=== PATIENT | female | born 1950 | race Caucasian/White ===

== ENCOUNTER 2018-08-10 14:02 | Emergency (ER) | payer MEDICARE, OTHER, SELFPAY ==
[2018-08-10 14:00] VITALS: BP 137/80; PULSE 80; RESP 14; TEMP 36.2; O2SAT 93
--- NOTE | 2018-08-10 14:12 | DI.RAD.S_ITS ---
PROCEDURE: XR SHOULDER RT MIN 2V INDICATIONS: shoulder/humeral pain, fall outstretched arm TECHNIQUE: 2 views of the shoulder were acquired. COMPARISON: None. FINDINGS: Bones: No dislocations. No suspicious bony lesions. Visualized ribs appear intact. There is a three-part humeral head/neck fracture at the right shoulder with moderate degenerative osteoarthritis. Partially visualized at the cervical spine are posterior fixation devices and screws none which appear disrupted. Soft tissues: No suspicious soft tissue calcifications. IMPRESSION: Humeral head/neck acute fracture, three-part, with a.c. joint osteoarthritis. Dictated by: Suman Andersen M.D. on 08/10/2018 at 15:07 Approved by: Suman Andersen M.D. on 08/10/2018 at 15:09
--- NOTE | 2018-08-10 14:14 | ED_ITS ---
HPI - Extremity Injury (Upper) General Chief Complaint: Extremity Injury, Upper Stated Complaint: GLF, Right shoulder pain. Time Seen by Provider: 08/10/18 14:07 Source: patient Mode of arrival: ambulatory Limitations: no limitations History of Present Illness HPI narrative: This is a 68-year-old female comes in with complaint of right shoulder/upper extremity pain. Patient states that she tripped earlier today and fell on outstretched hand and had felt a pop and has pain in her right shoulder. Patient denies striking her head she denies any neck or current back pain. Patient is not having any new numbness or tingling. She states shows has some numbness and tingling in her thumb and 2nd finger secondary to a cervical surgery she had remotely. Patient is not having any new weakness. She tried to move her shoulder but was very painful and does not wish to at this time. She denies any other injuries. Patient is not having any headache, no nausea or vomiting, no chest pain or shortness of breath. No GI or urinary symptoms. Related Data Previous Rx's Medication Instructions Recorded diazepam 10 mg PO HSP PRN #20 tab 07/12/16 hydrocodone-acetaminophen 1 tab PO Q4HP PRN #50 tab 07/19/16 Disabled Parking Permit dev #1 07/28/16 diazepam [Valium] 5 mg PO TID PRN #7 tab 12/29/17 oxycodone-acetaminophen [Percocet] 1 tab PO Q4-6H PRN #14 tab 08/10/18 Allergies Allergy/AdvReac Type Severity Reaction Status Date / Time egg [EGG] Allergy Intermediate GI UPSET Verified 08/10/18 14:32 CORNSILK Allergy Intermediate GI UPSET Uncoded 01/23/18 12:30 Review of Systems Review of Systems All systems reviewed & are unremarkable except as noted in HPI and below ENT Ears, Nose, Mouth, and Throat: Denies neck pain Cardiovascular Denies chest pain and Denies dyspnea Respiratory Denies dyspnea Gastrointestinal Gastrointestinal: Denies abdominal pain, Denies nausea and Denies vomiting Genitourinary Denies urinary frequency and Denies dysuria Musculoskeletal Denies back pain, Reports limited range of motion, Denies muscle weakness, Denies neck pain, Reports numbness (Chronic 1st and 2nd finger right hand.) and Reports other (Right arm pain) Integumentary/Breasts Denies rash Neurologic Reports numbness (Chronic 1st and 2nd finger right hand.) PFSH Medical History Chronic back pain (Acute) Hypertension (Acute) Surgical History History of back surgery (Acute) Hx of cervical spine surgery (Acute) Family History Father Age: 85 Prostate cancer Hypertension High cholesterol Mother Mental health problem Social History marital status: details: Lives on [facility] Smoking Status: Never smoker Exam Narrative Exam Narrative: GENERAL: Alert and oriented x three, well-nourished, well- appearing female in some moderate distress. HEENT: Head normocephalic, atraumatic, EOMI, pupils reactive, face symmetric, moist mucous membranes NECK: Supple, full range of motion, no vertebral tenderness of cervical spine. CARDIOVASCULAR: Regular rate and rhythm without murmurs, rubs or gallops. RESPIRATORY: Breath sounds equal bilaterally, no wheezes rales or rhonchi. ABDOMEN: Soft, nontender. Normoactive bowel sounds all 4 quadrants. No guarding or rebound, rigidity, no mass : No CVA tenderness EXTREMITIES: Patient is not willing to lift or move her right shoulder, she has tenderness over the proximal end of the humerus. No tenderness over the AC joint, no to clavicular or scapular tenderness. She has no tenderness of the right elbow, forearm or hand. patient has 2+ pulses bilaterally in the upper extremities. She has equal heel cementer machine bilaterally. No swelling is appreciated right versus left., no clubbing or edema. Neurovascularly intact NEUROLOGICAL: Cranial nerves II through XII grossly intact. SKIN: Warm, dry, no petechiae, no rashes or lesions. Initial Vital Signs Initial Vital Signs: Vital Signs Temperature 97.1 F L 08/10/18 14:00 Pulse Rate 80 08/10/18 14:00 Respiratory Rate 14 08/10/18 14:00 Blood Pressure 137/80 08/10/18 14:00 Pulse Oximetry 93 08/10/18 14:00 Course Orders Ordered: ED Orders 08/10/18 14:12 XR shoulder RT min 2V Stat Discontinued Medications Hydromorphone HCl (Dilaudid) 1 mg IV NOW ONE Stop: 08/10/18 15:35 Last Admin: 08/10/18 15:38 Dose: 1 mg Morphine Sulfate (Morphine) 4 mg IV NOW ONE Stop: 08/10/18 14:18 Last Admin: 10/27/18 14:31 Dose: 4 mg Oxycodone/Acetaminophen (Endocet 5/325 Prepack) 1 bottle MISC SEEINSTR ONE Stop: 08/10/18 18:55 Last Admin: 08/10/18 19:04 Dose: 1 bottle Vital Signs - 8 hr 08/10/18 14:00 08/10/18 15:39 08/10/18 17:04 Temperature 97.1 F L Pulse Rate 80 80 77 Respiratory Rate 14 18 Blood Pressure 137/80 Blood Pressure [Left Arm] 128/78 118/72 Pulse Oximetry 93 99 95 MDM - Extremity Injury (Upper) MDM Narrative Medical decision making narrative: I spoke with Dr. Tovar plan for follow-up , images were reviewed. Shoulder immobilizer as well as pain control. Patient is aware of the plan to follow up with Orthopedic surgery. Given verbal and written instructions, Recheck after shoulder immobilizer and patient is NVI. Discharge Plan Departure Patient Disposition: Home Clinical Impression: Fracture of head of humerus Instructions: DI for Humeral Fracture Activity Restrictions/Additional Instructions: Follow-up with Orthopedic surgery in the next 3-5 days. Call the Orthopedic surgery office tomorrow morning. Contact information is below. Take pain medications as prescribed, these medications can make you sleepy do not drive, perform hazards activities or make any major decisions while taking them. Splint Care: Keep splint clean and dry. Elevated affected body part to decrease swelling. OK to use ice pack on the affected body part. Use for 15-20 minutes each time, for 5-6x per day. If you develop worsening pain, numbness, tingling, discoloration of the affected body part, loosen the shoulder immobilizer, and either see your doctor for an urgent re-assessment, or return to the Emergency Department. Return to the Emergency Department for any new or worsening symptoms. Prescriptions: New oxycodone-acetaminophen [Percocet] 5-325 mg tablet 1 tab PO Q4-6H PRN (Reason: pain) Qty: 14 RF: 0 No Action diazepam 10 MG tablet 10 mg PO HSP PRNQty: 20 RF: 0 hydrocodone-acetaminophen 5 MG/325 MG tablet 1 tab PO Q4HP PRNQty: 50 RF: 0 Disabled Parking Permit Qty: 1 RF: 0 diazepam [Valium] 5 MG tablet 5 mg PO TID PRNQty: 7 RF: 0 Referrals: Amy Tovar MD [Physician] - Amy Perea MD [Primary Care Provider] -
[2018-08-10] MEDS: MORPHINE 4 MG/ML INJ IV (14:31)
[2018-08-10] MEDS: HYDROMORPHONE 1 MG INJ IV (15:38)
[2018-08-10 15:39] VITALS: BP 128/78; PULSE 80; RESP 18; O2SAT 99
[2018-08-10 17:04] VITALS: BP 118/72; PULSE 77; RESP 18; O2SAT 95
[2018-08-10] MEDS: OXYCODONE/APAP 5/325 PREPACK 1 BOTTLE MISC (19:04)
[2018-08-10 19:40] VITALS: BP 120/83; PULSE 79; RESP 18; O2SAT 100
== END 2018-08-10 19:40 | disposition home or self-care (01) ==
PROVIDERS: Emergency Provider Emergency Medicine; PCP Family Medicine
DX: S42.291A Other displaced fracture of upper end of right humerus, initial encounter for closed fracture (principal); W01.0XXA Fall on same level from slipping, tripping and stumbling without subsequent striking against object, initial encounter
CPT/HCPCS: 73030; 96374; 96375; 99283; J1170; J2270

== ENCOUNTER 2018-09-21 14:53 | Emergency (ER) | payer MEDICARE, OTHER, SELFPAY ==
[2018-09-21 15:02] VITALS: BP 156/95; PULSE 107; RESP 20; TEMP 36.2; O2SAT 98; BMI 38.9
--- NOTE | 2018-09-21 15:07 | DI.RAD.S_ITS ---
PROCEDURE: XR HIP W PEL IF DONE RT 2V INDICATIONS: hip pain and pop while walking with recent injury TECHNIQUE: AP pelvis with lateral view(s) of the right hip(s). COMPARISON: None. FINDINGS: Bones: Right worse than left bilateral hip joint osteoarthritis is seen. No evidence of avascular necrosis. No fractures or dislocations. Pelvic ring appears intact. No suspicious bony lesions. Soft tissues: The visualized bowel gas pattern is normal. No suspicious soft tissue calcifications. IMPRESSION: Right worse than left bilateral hip joint osteoarthritis. No acute pelvic or hip fracture. No evidence of avascular necrosis. Dictated by: Ranjan Howell M.D. on 09/21/2018 at 15:54 Approved by: Ranjan Howell M.D. on 09/21/2018 at 15:54
--- NOTE | 2018-09-21 16:25 | ED.LOWEXIN ---
HPI - Extremity Injury (Lower) <ROHAN Neumann - Last Filed: 09/21/18 21:33> General Chief Complaint: Extremity Injury, Lower Stated Complaint: right side hip pain Time Seen by Provider: 09/21/18 15:39 Source: patient Mode of arrival: wheelchair Limitations: no limitations History of Present Illness HPI Narrative: 68-year-old female with history of osteo arthritis here for complaint of pain into her right hip. The she does state that she had a ground level fall several days ago. She states she had some pain into her right hip after the Fall. She reports that she was walking 2 days ago and felt increase in the pain in the right hip. She denies any other trauma other than to the right hip. She did not hit her head. Increased pain with ambulation. She has a history of chronic pain to the right hip secondary to osteoarthritis. MD complaint: hip injury Related Data Previous Rx's Medication Instructions Recorded diazepam 10 mg PO HSP PRN #20 tab 07/12/16 hydrocodone-acetaminophen 1 tab PO Q4HP PRN #50 tab 07/19/16 Disabled Parking Permit dev #1 07/28/16 diazepam [Valium] 5 mg PO TID PRN #7 tab 12/29/17 oxycodone-acetaminophen [Percocet] 1 tab PO Q4-6H PRN #14 tab 08/10/18 Allergies Allergy/AdvReac Type Severity Reaction Status Date / Time No Known Drug Allergies Allergy Verified 09/21/18 15:02 Review of Systems <ROHAN Neumann - Last Filed: 09/21/18 21:33> Constitutional Denies chills, Denies fever(s), Denies lethargy and Denies weakness Eyes Denies change in vision, Denies eye discharge, Denies irritation and Denies loss of vision ENT Ears, Nose, Mouth, and Throat: Denies change in voice, Denies neck pain and Denies sore throat Cardiovascular Denies chest pain, Denies irregular heart rhythm, Denies lightheadedness, Denies palpitations, Denies dyspnea, Denies dyspnea on exertion and Denies orthopnea Respiratory Denies cough, Denies dyspnea, Denies dyspnea on exertion and Denies wheezing Gastrointestinal Gastrointestinal: Denies abdominal pain, Denies change in bowel habits, Denies diarrhea, Denies nausea and Denies vomiting Genitourinary Denies hematuria, Denies flank pain, Denies urinary incontinence and Denies urinary urgency Musculoskeletal Denies neck pain Comments: Right hip pain Integumentary/Breasts Denies pruritus, Denies erythema, Denies rash and Denies wounds Neurologic Denies confusion, Denies loss of vision and Denies weakness Psychiatric Denies anxiety, Denies confusion, Denies depression, Denies homicidal ideation and Denies suicidal ideation Endocrine Denies palpitations Hematologic/Lymphatic Denies easy bruising Allergic/Immunologic Denies wheezing Exam <ROHAN Neumann - Last Filed: 09/21/18 21:33> Initial Vital Signs Initial Vital Signs: Vital Signs Temperature 97.1 F L 09/21/18 15:02 Pulse Rate 107 H 09/21/18 15:02 Respiratory Rate 20 09/21/18 15:02 Blood Pressure 156/95 H 09/21/18 15:02 Pulse Oximetry 98 09/21/18 15:02 Const General: cooperative and well developed Nutritional Appearance: well nourished Orientation: alert, awake, oriented x3 and not confused [facility] Mouth: oral mucosae normal and moist mucous membranes Eyes Conjunctivae: conjunctivae normal Sclera: sclerae normal Pupils: PERRL EOM: EOM intact bilaterally Resp Effort & Inspection: normal respiratory effort, able to speak in complete sentences, no respiratory distress and no use of accessory muscles Auscultation: clear to auscultation bilaterally, no rales, no rhonchi and no wheezes Cardio Rate: regular rate Rhythm: regular rhythm Heart Sounds: no click, no gallops, no murmurs and no rubs Pulses: normal peripheral pulses Skin General: no rashes or lesions noted, No jaundice and No petechiae Neuro General: alert, oriented x3, gait normal and no focal motor deficits Speech: speech normal Extrem Other: no signs of trauma to the right hip. No ecchymosis. No open lesions. No deformities. Distal sensation is intact. Distal pulses are intact. <Freddy Ayala DO - Last Filed: 09/23/18 07:10> Initial Vital Signs Initial Vital Signs: Vital Signs Temperature 97.1 F L 09/21/18 15:02 Pulse Rate 107 H 09/21/18 15:02 Respiratory Rate 20 09/21/18 15:02 Blood Pressure 156/95 H 09/21/18 15:02 Pulse Oximetry 98 09/21/18 15:02 Course <ROHAN Neumann - Last Filed: 09/21/18 21:33> Orders Ordered: ED Orders 09/21/18 15:07 XR hip w pel if done RT 2V Stat Vital Signs - 8 hr 09/21/18 15:02 09/21/18 16:53 Temperature 97.1 F L Pulse Rate 107 H 92 H Respiratory Rate 20 14 Blood Pressure 156/95 H Blood Pressure [Left Arm] 187/89 H Pulse Oximetry 98 96 <Freddy Ayala DO - Last Filed: 09/23/18 07:10> Orders Ordered: ED Orders 09/21/18 15:07 XR hip w pel if done RT 2V Stat Vital Signs - 8 hr 09/21/18 15:02 09/21/18 16:53 Temperature 97.1 F L Pulse Rate 107 H 92 H Respiratory Rate 20 14 Blood Pressure 156/95 H Blood Pressure [Left Arm] 187/89 H Pulse Oximetry 98 96 MDM - Extremity Injury (Lower) <ORHAN Neumann - Last Filed: 09/21/18 21:33> Imaging Data Right hip : Radiologist's impression: [address] [address] XRay Report Signed Patient: Carol Finley JMR#: [id number] : 1950Acct:[id number] Age/Sex: 68 / FDate of Service: 09/21/18 Loc: ED Accession Number: [id number] Procedure: XR hip w pel if done RT 2V Ordering Provider: Freddy Ayala D.O. PROCEDURE: XR HIP W PEL IF DONE RT 2V INDICATIONS: hip pain and pop while walking with recent injury TECHNIQUE: AP pelvis with lateral view(s) of the right hip(s). COMPARISON: None. FINDINGS: Bones: Right worse than left bilateral hip joint osteoarthritis is seen. No evidence of avascular necrosis. No fractures or dislocations. Pelvic ring appears intact. No suspicious bony lesions. Soft tissues: The visualized bowel gas pattern is normal. No suspicious soft tissue calcifications. IMPRESSION: Right worse than left bilateral hip joint osteoarthritis. No acute pelvic or hip fracture. No evidence of avascular necrosis. Dictated by: Ranjan Howell M.D. on 09/21/2018 at 15:54 Approved by: Ranjan Howell M.D. on 09/21/2018 at 15:54 [facility] Narrative Medical decision making narrative: x-ray the right hip and pelvis was obtained and was negative for any fractures. x-ray does show that she has osteoarthritis no signs of avascular necrosis patient does have a chronic history of arthritis. she is currently trying to get Orthopedics to discuss right hip replacement. will have her continue using [id number] ibuprofen or Tylenol as needed for any discomfort. Gentle range of motion to the right hip. No strenuous activity. Follow up with primary care provider. Return emergency room for any worsening symptoms. Discharge Plan Departure Patient Disposition: Home Clinical Impression: Acute pain of right hip Discharge Date/Time: 09/21/18 17:23 Interventions: ED Discharge Assessment Last Done: 09/21/18 17:23 Instructions: DI for Hip Pain Activity Restrictions/Additional Instructions: x-ray the right hip and pelvis was obtained and was negative for any fractures. x-ray does show osteoarthritis to the right hip. Use [id number] ibuprofen or Tylenol as needed for any discomfort. Gentle range of motion to the right hip. No strenuous activity. Follow up with primary care provider. follow up with Orthopedics. Return emergency room for any worsening symptoms. Prescriptions: No Action diazepam 10 MG tablet 10 mg PO HSP PRNQty: 20 RF: 0 hydrocodone-acetaminophen 5 MG/325 MG tablet 1 tab PO Q4HP PRNQty: 50 RF: 0 Disabled Parking Permit Qty: 1 RF: 0 diazepam [Valium] 5 MG tablet 5 mg PO TID PRNQty: 7 RF: 0 oxycodone-acetaminophen [Percocet] 5-325 mg tablet 1 tab PO Q4-6H PRN (Reason: pain) Qty: 14 RF: 0 Referrals: Amy Perea MD [Primary Care Provider] - <Freddy Ayala DO - Last Filed: 09/23/18 07:10> Cosign ED Attending Davidature Attestation: I was immediately available in the department for consultation. Documentation has been reviewed. I agree with assessment and plan.
[2018-09-21 16:53] VITALS: BP 187/89; PULSE 92; RESP 14; O2SAT 96
--- NOTE | 2018-09-21 17:19 | ED_ITS ---
HPI - Extremity Injury (Lower) <ROHAN Neumann - Last Filed: 09/21/18 21:33> General Chief Complaint: Extremity Injury, Lower Stated Complaint: right side hip pain Time Seen by Provider: 09/21/18 15:39 Source: patient Mode of arrival: wheelchair Limitations: no limitations History of Present Illness HPI Narrative: 68-year-old female with history of osteo arthritis here for complaint of pain into her right hip. The she does state that she had a ground level fall several days ago. She states she had some pain into her right hip after the Fall. She reports that she was walking 2 days ago and felt increase in the pain in the right hip. She denies any other trauma other than to the right hip. She did not hit her head. Increased pain with ambulation. She has a history of chronic pain to the right hip secondary to osteoarthritis. MD complaint: hip injury Related Data Previous Rx's Medication Instructions Recorded diazepam 10 mg PO HSP PRN #20 tab 07/12/16 hydrocodone-acetaminophen 1 tab PO Q4HP PRN #50 tab 07/19/16 Disabled Parking Permit dev #1 07/28/16 diazepam [Valium] 5 mg PO TID PRN #7 tab 12/29/17 oxycodone-acetaminophen [Percocet] 1 tab PO Q4-6H PRN #14 tab 08/10/18 Allergies Allergy/AdvReac Type Severity Reaction Status Date / Time No Known Drug Allergies Allergy Verified 09/21/18 15:02 Review of Systems <ROHAN Neumann - Last Filed: 09/21/18 21:33> Constitutional Denies chills, Denies fever(s), Denies lethargy and Denies weakness Eyes Denies change in vision, Denies eye discharge, Denies irritation and Denies loss of vision ENT Ears, Nose, Mouth, and Throat: Denies change in voice, Denies neck pain and Denies sore throat Cardiovascular Denies chest pain, Denies irregular heart rhythm, Denies lightheadedness, Denies palpitations, Denies dyspnea, Denies dyspnea on exertion and Denies orthopnea Respiratory Denies cough, Denies dyspnea, Denies dyspnea on exertion and Denies wheezing Gastrointestinal Gastrointestinal: Denies abdominal pain, Denies change in bowel habits, Denies diarrhea, Denies nausea and Denies vomiting Genitourinary Denies hematuria, Denies flank pain, Denies urinary incontinence and Denies urinary urgency Musculoskeletal Denies neck pain Comments: Right hip pain Integumentary/Breasts Denies pruritus, Denies erythema, Denies rash and Denies wounds Neurologic Denies confusion, Denies loss of vision and Denies weakness Psychiatric Denies anxiety, Denies confusion, Denies depression, Denies homicidal ideation and Denies suicidal ideation Endocrine Denies palpitations Hematologic/Lymphatic Denies easy bruising Allergic/Immunologic Denies wheezing Exam <ROHAN Neumann - Last Filed: 09/21/18 21:33> Initial Vital Signs Initial Vital Signs: Vital Signs Temperature 97.1 F L 09/21/18 15:02 Pulse Rate 107 H 09/21/18 15:02 Respiratory Rate 20 09/21/18 15:02 Blood Pressure 156/95 H 09/21/18 15:02 Pulse Oximetry 98 09/21/18 15:02 Const General: cooperative and well developed Nutritional Appearance: well nourished Orientation: alert, awake, oriented x3 and not confused [facility] Mouth: oral mucosae normal and moist mucous membranes Eyes Conjunctivae: conjunctivae normal Sclera: sclerae normal Pupils: PERRL EOM: EOM intact bilaterally Resp Effort & Inspection: normal respiratory effort, able to speak in complete sentences, no respiratory distress and no use of accessory muscles Auscultation: clear to auscultation bilaterally, no rales, no rhonchi and no wheezes Cardio Rate: regular rate Rhythm: regular rhythm Heart Sounds: no click, no gallops, no murmurs and no rubs Pulses: normal peripheral pulses Skin General: no rashes or lesions noted, No jaundice and No petechiae Neuro General: alert, oriented x3, gait normal and no focal motor deficits Speech: speech normal Extrem Other: no signs of trauma to the right hip. No ecchymosis. No open lesions. No deformities. Distal sensation is intact. Distal pulses are intact. <Freddy Ayala DO - Last Filed: 09/23/18 07:10> Initial Vital Signs Initial Vital Signs: Vital Signs Temperature 97.1 F L 09/21/18 15:02 Pulse Rate 107 H 09/21/18 15:02 Respiratory Rate 20 09/21/18 15:02 Blood Pressure 156/95 H 09/21/18 15:02 Pulse Oximetry 98 09/21/18 15:02 Course <ROHAN Neumann - Last Filed: 09/21/18 21:33> Orders Ordered: ED Orders 09/21/18 15:07 XR hip w pel if done RT 2V Stat Vital Signs - 8 hr 09/21/18 15:02 09/21/18 16:53 Temperature 97.1 F L Pulse Rate 107 H 92 H Respiratory Rate 20 14 Blood Pressure 156/95 H Blood Pressure [Left Arm] 187/89 H Pulse Oximetry 98 96 <Freddy Ayala DO - Last Filed: 09/23/18 07:10> Orders Ordered: ED Orders 09/21/18 15:07 XR hip w pel if done RT 2V Stat Vital Signs - 8 hr 09/21/18 15:02 09/21/18 16:53 Temperature 97.1 F L Pulse Rate 107 H 92 H Respiratory Rate 20 14 Blood Pressure 156/95 H Blood Pressure [Left Arm] 187/89 H Pulse Oximetry 98 96 MDM - Extremity Injury (Lower) <ROHAN Neumann - Last Filed: 09/21/18 21:33> Imaging Data Right hip : Radiologist's impression: [address] [address] XRay Report Signed Patient: Carol Finley JMR#: [id number] : 1950Acct:[id number] Age/Sex: 68 / FDate of Service: 09/21/18 Loc: ED Accession Number: [id number] Procedure: XR hip w pel if done RT 2V Ordering Provider: Freddy Ayala D.O. PROCEDURE: XR HIP W PEL IF DONE RT 2V INDICATIONS: hip pain and pop while walking with recent injury TECHNIQUE: AP pelvis with lateral view(s) of the right hip(s). COMPARISON: None. FINDINGS: Bones: Right worse than left bilateral hip joint osteoarthritis is seen. No evidence of avascular necrosis. No fractures or dislocations. Pelvic ring appears intact. No suspicious bony lesions. Soft tissues: The visualized bowel gas pattern is normal. No suspicious soft tissue calcifications. IMPRESSION: Right worse than left bilateral hip joint osteoarthritis. No acute pelvic or hip fracture. No evidence of avascular necrosis. Dictated by: Ranjan Howell M.D. on 09/21/2018 at 15:54 Approved by: Ranjan Howell M.D. on 09/21/2018 at 15:54 [facility] Narrative Medical decision making narrative: x-ray the right hip and pelvis was obtained and was negative for any fractures. x-ray does show that she has osteoarthritis no signs of avascular necrosis patient does have a chronic history of arthritis. she is currently trying to get Orthopedics to discuss right hip replacement. will have her continue using [id number] ibuprofen or Tylenol as needed for any discomfort. Gentle range of motion to the right hip. No strenuous activity. Follow up with primary care provider. Return emergency room for any worsening symptoms. Discharge Plan Departure Patient Disposition: Home Clinical Impression: Acute pain of right hip Discharge Date/Time: 09/21/18 17:23 Interventions: ED Discharge Assessment Last Done: 09/21/18 17:23 Instructions: DI for Hip Pain Activity Restrictions/Additional Instructions: x-ray the right hip and pelvis was obtained and was negative for any fractures. x-ray does show osteoarthritis to the right hip. Use over-the- counter ibuprofen or Tylenol as needed for any discomfort. Gentle range of motion to the right hip. No strenuous activity. Follow up with primary care provider. follow up with Orthopedics. Return emergency room for any worsening symptoms. Prescriptions: No Action diazepam 10 MG tablet 10 mg PO HSP PRNQty: 20 RF: 0 hydrocodone-acetaminophen 5 MG/325 MG tablet 1 tab PO Q4HP PRNQty: 50 RF: 0 Disabled Parking Permit Qty: 1 RF: 0 diazepam [Valium] 5 MG tablet 5 mg PO TID PRNQty: 7 RF: 0 oxycodone-acetaminophen [Percocet] 5-325 mg tablet 1 tab PO Q4-6H PRN (Reason: pain) Qty: 14 RF: 0 Referrals: Amy Perea MD [Primary Care Provider] - <Freddy Ayala DO - Last Filed: 09/23/18 07:10> Cosign ED Attending Davidature Attestation: I was immediately available in the department for consultation. Documentation has been reviewed. I agree with assessment and plan.
== END 2018-09-21 17:23 | disposition home or self-care (01) ==
PROVIDERS: Emergency Provider Nurse Practitioner Family; PCP Family Medicine
DX: M25.551 Pain in right hip (principal); W18.30XA Fall on same level, unspecified, initial encounter
CPT/HCPCS: 73502; 99282; 99283

== ENCOUNTER 2019-01-05 21:12 | Emergency (ER) | payer MEDICARE, OTHER, SELFPAY ==
[2019-01-05 21:28] VITALS: BP 144/69; PULSE 69; RESP 22; TEMP 36.9; O2SAT 100
--- NOTE | 2019-01-05 21:35 | ED_ITS ---
HPI - Dizziness General Chief Complaint: Dizziness Stated Complaint: dizziness Time Seen by Provider: 01/05/19 21:29 Source: patient Mode of arrival: ambulatory Limitations: no limitations History of Present Illness HPI Narrative: Patient is a 68-year-old female here for evaluation of dizziness. She states that for the past several months on occasion especially when she turns her head to the right she has episodes of a room spinning sensation. She denies any other associated symptoms to include chest pain or palpitations. He has never passed out because of the symptoms. She states that in the past she has been able to make the symptoms go away by relaxing and not moving her head. She states that over the past day it was the same symptoms especially when she turns her head to the right however they have lasted longer and if not always gone away when she has been still. Related Data Previous Rx's Medication Instructions Recorded diazepam 10 mg PO HSP PRN #20 tab 07/12/16 hydrocodone-acetaminophen 1 tab PO Q4HP PRN #50 tab 07/19/16 Disabled Parking Permit dev #1 07/28/16 diazepam [Valium] 5 mg PO TID PRN #7 tab 12/29/17 oxycodone-acetaminophen [Percocet] 1 tab PO Q4-6H PRN #14 tab 08/10/18 loratadine [Claritin] 10 mg PO DAILY PRN #30 tab 01/05/19 meclizine 25 mg PO BID-TID PRN #20 tab 01/05/19 Allergies Allergy/AdvReac Type Severity Reaction Status Date / Time No Known Drug Allergies Allergy Verified 09/21/18 15:02 Review of Systems Constitutional Denies fever(s), Denies headache(s) and Denies lethargy Eyes Denies change in vision and Denies diplopia ENT Ears, Nose, Mouth, and Throat: Reports vertigo, Denies facial pain, Denies headache(s), Reports sinus pressure and Denies sore throat Cardiovascular Denies chest pain and Denies dyspnea Respiratory Denies dyspnea Gastrointestinal Gastrointestinal: Denies abdominal pain, Denies nausea and Denies vomiting Musculoskeletal Denies myalgias and Denies arthralgias Integumentary/Breasts Denies rash Neurologic Reports vertigo and Denies headache(s) Hematologic/Lymphatic Denies easy bleeding and Denies easy bruising Allergic/Immunologic Denies urticaria [facility] Medical History Chronic back pain (Acute) Hypertension (Acute) Family History Father Age: 85 Prostate cancer Hypertension High cholesterol Mother Mental health problem Social History marital status: details: Lives on [facility] Smoking Status: Never smoker Exam Initial Vital Signs Initial Vital Signs: Vital Signs Temperature 98.5 F 01/05/19 21:28 Pulse Rate 69 01/05/19 21:28 Respiratory Rate 22 01/05/19 21:28 Blood Pressure 144/69 H 01/05/19 21:28 Pulse Oximetry 100 01/05/19 21:28 Const General: cooperative, healthy appearing, comfortable, well developed, well groomed and No acute distress Orientation: alert, awake and oriented x3 HENMT Head: normal to inspection and normocephalic Eyes Pupils: PERRL EOM: EOM intact bilaterally Resp Effort & Inspection: normal respiratory effort Auscultation: clear to auscultation bilaterally Cardio Rate: regular rate Rhythm: regular rhythm Skin Lesions: no lesions Rashes: no rashes Neuro General: alert, awake and oriented x3 Cranial Nerves: CN's II-XI intact bilaterally Cognition: normal cognition Speech: speech normal Gait: normal gait Motor: muscle tone normal throughout Sensory Exam: no sensory deficits noted Other: Patient able to reproduce her vertigo by laying flat and looking to the right with nystagmus. Essentially performing her own Meera-Hallpike maneuver positive to the right. Extrem General: normal to inspection and capillary refill normal Psych Appearance: grossly normal and well kempt Course Orders Ordered: ED Orders 01/05/19 21:29 EKG-12 Lead Stat Discontinued Medications Meclizine HCl (Antivert) 25 mg PO NOW ONE Stop: 01/05/19 22:31 Last Admin: 01/05/19 22:31 Dose: 25 mg Vital Signs - 8 hr 01/05/19 21:28 Temperature 98.5 F Pulse Rate 69 Respiratory Rate 22 Blood Pressure 144/69 H Pulse Oximetry 100 [facility] - Dizziness ECG Data Attestation: I personally reviewed and interpreted this ECG as follows: Prior ECG tracings: not available for review Interpretation: Sinus rhythm Ventricular rate 85 Normal axis Normal QRS Normal QTC No ST T wave changes [facility] Narrative Medical decision making narrative: Patient performed her own Meera-Hallpike maneuver by causing the symptoms to reoccur with visible nystagmus when she turned her head to the right. Her symptoms improved when she laid flat look forward. She has no other associated symptoms. EKG is unremarkable. I suspect BPPV. Patient has not taken anything for this. She was given a handout for the Brien maneuver. She was also given a prescription for meclizine. We also discussed the use of decongestants. Low suspicion for CVA. Will hold on CT scan or MRI for now. When the patient contact her primary care doctor for follow-up. She was given return precautions. She expressed understanding and agreement with plan. Discharge Plan Departure Patient Disposition: Home Clinical Impression: Vertigo Discharge Date/Time: 01/05/19 22:31 Interventions: ED Discharge Assessment Last Done: 01/05/19 22:31 Instructions: DI for Vertigo Activity Restrictions/Additional Instructions: I recommend you contact your primary doctor for a follow-up. Take the medications like we discussed. Return to the emergency department for any new or worsening symptoms Prescriptions: New meclizine 25 mg tablet 25 mg PO BID-TID PRN (Reason: motion sickness) Qty: 20 RF: 0 loratadine [Claritin] 10 mg tablet 10 mg PO DAILY PRN (Reason: allergy symptoms) Qty: 30 RF: 0 No Action diazepam 10 MG tablet 10 mg PO HSP PRNQty: 20 RF: 0 hydrocodone-acetaminophen 5 MG/325 MG tablet 1 tab PO Q4HP PRNQty: 50 RF: 0 Disabled Parking Permit Qty: 1 RF: 0 diazepam [Valium] 5 MG tablet 5 mg PO TID PRNQty: 7 RF: 0 oxycodone-acetaminophen [Percocet] 5-325 mg tablet 1 tab PO Q4-6H PRN (Reason: pain) Qty: 14 RF: 0 Referrals: Amy Perea MD [Primary Care Provider] -
[2019-01-05] MEDS: MECLIZINE HCL 12.5 MG TABLET 25 MG PO (22:31)
== END 2019-01-05 22:31 | disposition home or self-care (01) ==
PROVIDERS: Emergency Provider Emergency Medicine; PCP Family Medicine
DX: R42 Dizziness and giddiness (principal)
CPT/HCPCS: 93005; 99282; 99283

== ENCOUNTER → 2021-03-08 09:56 | Outpatient (CLI) | payer MEDICARE, OTHER, SELFPAY ==
[2021-03-08 19:41] LABS: Hematocrit 42.5 % (36-46); Hemoglobin 14.2 g/dL (12.0-16.0); Mean Corpuscular HGB Conc 33.3 % (30-36); Mean Corpuscular Hemoglobin 32.4 PG (26-34); Platelet Count 171 X10^3/uL (150-400); Red Blood Cell Count 4.38 X10^6/uL (4.0-5.2); Red Cell Distribution Width 12.8 % (11.6-14.8); White Blood Cell Count 3.9 X10^3/uL (4.5-11.0)
[2021-03-08 19:55] LABS: Alanine Aminotransferase 35 IU/L (<35); Albumin 3.8 g/dL (3.5-5.0); Albumin Globulin Ratio 1.4 (1.0-2.8); Alkaline Phosphatase 97 U/L (38-126); Aspartate Aminotransferase 33 IU/L (14-36); BUN Creatinine Ratio 17.1 (6-22); Bilirubin Total 0.4 mg/dL (0.2-1.3); Blood Urea Nitrogen 13 mg/dL (7-17); Calcium 9.5 mg/dL (8.4-10.2); Carbon Dioxide 28 mmol/L (22-32); Chloride 107 mmol/L (98-107); Estimated Glomerular Filt Rate > 60.0 mL/min (>60); Globulin 2.8 g/dL (1.7-4.1); Glucose 104 mg/dL (80-110); HEMOLYSIS < 15 (0-50); Potassium 4.3 mmol/L (3.4-5.1); Sodium 140 mmol/L (137-145); Total Protein 6.6 g/dL (6.3-8.2)
[2021-03-08 20:24] LABS: Thyroid Stimulating Hormone 0.778 uIU/mL (0.47-4.68)
== END ==
PROVIDERS: PCP Family Medicine; Visit Provider Family Medicine
DX: R87.610 Atypical squamous cells of undetermined significance on cytologic smear of cervix (ASC-US) (principal); E78.5 Hyperlipidemia, unspecified; M43.22 Fusion of spine, cervical region
CPT/HCPCS: 80053; 84443; 85027

== ENCOUNTER 2021-09-20 21:01 | Emergency (ER) | payer MEDICARE, OTHER, SELFPAY ==
[2021-09-20 21:15] VITALS: BP 222/99; PULSE 70; RESP 18; TEMP 36.6; O2SAT 98
--- NOTE | 2021-09-20 21:19 | DI.RAD.S_ITS ---
PROCEDURE: XR CHEST 1V INDICATIONS: chest pain TECHNIQUE: One view of the chest was acquired. COMPARISON: [facility], CR, XR CHEST 1 VIEW, 08/07/2017, 12:39. FINDINGS: Surgical changes and devices: Fusion hardware in visualized portion of lower cervical spine is seen. Lungs and pleura: Chronic increased interstitial lung markings are noted. No definite focal infiltrate. No pleural effusions or pneumothorax. Mediastinum: Mediastinal contours appear normal. Heart size is normal. Bones and chest wall: No suspicious bony lesions. Overlying soft tissues appear unremarkable. IMPRESSION: Suggestion of chronic interstitial lung parenchymal disease. No definite focal infiltrate. No pleural effusion or pneumothorax. Dictated by: Ranjan Howell M.D. on 09/20/2021 at 21:35 Approved by: Ranjan Howell M.D. on 09/20/2021 at 21:39
[2021-09-20 21:54] LABS: Alanine Aminotransferase 26 IU/L (<35); Albumin 4.1 g/dL (3.5-5.0); Albumin Globulin Ratio 1.3 (1.0-2.8); Alkaline Phosphatase 55 U/L (38-126); Aspartate Aminotransferase 34 IU/L (14-36); BUN Creatinine Ratio 37.9 (6-22); Bilirubin Total 0.5 mg/dL (0.2-1.3); Blood Urea Nitrogen 25 mg/dL (7-17); Calcium 9.4 mg/dL (8.4-10.2); Carbon Dioxide 26 mmol/L (22-32); Chloride 110 mmol/L (98-107); Creatine Kinase 70 U/L (30-135); Estimated Glomerular Filt Rate > 60.0 mL/min (>60); Globulin 3.2 g/dL (1.7-4.1); Glucose 100 mg/dL (80-110); Lipase 113 U/L (23-300); Sodium 141 mmol/L (137-145); Total Protein 7.3 g/dL (6.3-8.2)
[2021-09-20 21:58] LABS: Add Manual Diff / Slide Review NO; Basophils Absolute Auto 100 /uL (0-100); Basophils Percent Auto 1.4 % (0-2); Eosinophils Absolute Auto 300 /uL (0-450); Eosinophils Percent Auto 5.5 % (2-4); Hematocrit 39.1 % (36-46); Hemoglobin 13.5 g/dL (12.0-16.0); Lymphocytes Absolute Auto 1400 /uL (1100-4500); Lymphocytes Percent Auto 26.1 % (25-40); Mean Corpuscular HGB Conc 34.5 % (30-36); Mean Corpuscular Volume 95.7 fL (80-100); Monocytes Absolute Auto 500 /uL (0-900); Monocytes Percent Auto 9.9 % (3-14); Neutrophils Absolute Auto 3000 /uL (1500-7000); Neutrophils Percent Auto 57.1 % (50-75); Platelet Count 143 X10^3/uL (150-400); Red Blood Cell Count 4.09 X10^6/uL (4.0-5.2); Red Cell Distribution Width 12.3 % (11.6-14.8); White Blood Cell Count 5.3 X10^3/uL (4.5-11.0)
[2021-09-20 21:59] LABS: HEMOLYSIS 109 (0-50)
[2021-09-20 22:06] LABS: Troponin I < 0.012 ng/mL (0.01-0.034)
[2021-09-20 23:57] VITALS: BP 182/98; PULSE 72; RESP 18
--- NOTE | 2021-09-20 23:57 | ED.GENADULT ---
HPI - General Adult General Chief complaint: Hypertension Stated complaint: high blood pressure, nose bleed Time Seen by Provider: 09/20/21 23:44 Source: patient Mode of arrival: Ambulatory History of Present Illness HPI narrative: Patient is a 71-year-old female. Has a history of hypertension. Last evening had a nose bleed. Today had elevated blood pressures. Contact her primary doctor. Was instructed to take an extra dose of her blood pressure medicines but her blood pressures continue to be elevated. She is also having a headache. Has had headache for the past 6 weeks. This seemed to start after having cataract surgery. She has followed up with her eye surgeon who stated that it was not related to her eyes or the cataract surgery. She has not had any evaluation of this. Has had surgery in her neck in the past that was many years ago for spinal fusion. States she has never had any imaging of her head. She denies any chest pain. No shortness of breath. No abdominal pain. No blood in her stool. No change in vision. Related Data Previous Rx's Medication Instructions Recorded Disabled Parking Permit dev #1 07/28/16 valsartan 160 mg tablet 160 mg PO .COMPLEX #90 tab MDD 09/20/21 320mg valsartan 80 mg tablet See Rx Instructions PO .COMPLEX 09/20/21 #180 tab MDD 320mg Allergies Allergy/AdvReac Type Severity Reaction Status Date / Time codeine Allergy Unknown Irritable Verified 05/05/21 09:14 naproxen Allergy Unknown NAUSEA/VOMI Verified 05/05/21 09:14 TING NSAIDS (Non-Steroidal Allergy Unknown BLEED Verified 05/05/21 09:14 Anti-Inflamma Review of Systems Constitutional Constitutional: Reports system reviewed and no additional complaints, except as documented Eyes Eyes: Reports system reviewed and no additional complaints, except as documented ENT Ears, Nose, Mouth, and Throat: Reports system reviewed and no additional complaints, except as documented Cardiovascular Cardiovascular: Reports system reviewed and no additional complaints, except as documented Respiratory Respiratory: Reports system reviewed and no additional complaints, except as documented Gastrointestinal Gastrointestinal: Reports system reviewed and no additional complaints, except as documented Genitourinary Genitourinary: Reports system reviewed and no additional complaints, except as documented Musculoskeletal Musculoskeletal: Reports system reviewed and no additional complaints, except as documented Integumentary/Breasts Skin/Breast: Reports system reviewed and no additional complaints, except as documented Neurologic Neurologic: Reports system reviewed and no additional complaints, except as documented Hematologic/Lymphatic On Anticoagulants: No Patient History Medical History Chronic back pain Hypertension Surgical History (Updated 02/24/21 @ 13:18 by Kathi Lopez CMA) History of back surgery History of right hip replacement History of tonsillectomy and adenoidectomy Hx of cervical spine surgery Family History (Updated 05/25/15 @ 00:00 by Conversion Provider) Father Age: 88 Prostate cancer Hypertension High cholesterol Mother Mental health problem Social History marital status: details: Lives on [facility] Smoking Status: Never smoker Smoking Status: Never smoker alcohol intake frequency: 0-2 drinks per day Substance Use Type: does not use Exam Initial Vital Signs Initial Vital Signs: Vital Signs Temperature 97.9 F 09/20/21 21:15 Pulse Rate 70 09/20/21 21:15 Respiratory Rate 18 09/20/21 21:15 Blood Pressure 222/99 H 09/20/21 21:15 Pulse Oximetry 98 09/20/21 21:15 Const General: cooperative, healthy appearing, comfortable and well developed HENOH Head: normal to inspection and normocephalic Eyes General: appearance normal, both eyes and all related structures Resp Effort & Inspection: normal respiratory effort Cardio Rate: regular rate GI Inspection: normal to inspection Skin General: no rashes or lesions noted Neuro General: patient alert, patient awake, patient oriented x3 and moves all extremities Cognition: normal cognition Speech: speech normal Gait: normal gait Sensory Exam: no sensory deficits noted Extrem General: normal to inspection and capillary refill normal Psych Appearance: grossly normal and well kempt Course Orders Ordered: ED Orders 09/20/21 21:19 XR chest 1V Stat EKG-12 Lead Stat 09/20/21 21:33 Complete Blood Count AUTO DIFF Stat Comprehensive Metabolic Panel Stat Lipase Stat Troponin & CK Cardiac Panel Stat 09/20/21 23:58 CT head/brain wo con Stat Vital Signs Vital signs: Vital Signs - 8 hr 09/20/21 21:15 09/20/21 23:57 09/21/21 01:11 Temperature 97.9 F Pulse Rate 70 72 Respiratory Rate 18 18 16 Blood Pressure 222/99 H 182/98 H 187/95 H Pulse Oximetry 98 98 Medical Decision Making Lab Data Lab results reviewed: Yes I reviewed the patient's lab results. Result diagrams: 09/20/21 21:33 09/20/21 21:33 Labs: Lab Results 09/20/21 09/20/21 Range/Units 21:33 21:33 WBC 5.3 (4.5-11.0) X10^3/uL RBC 4.09 (4.0-5.2) X10^6/uL Hgb 13.5 (12.0-16.0) g/dL Hct 39.1 (36-46) % MCV 95.7 (80-100) fL MCH 33.0 (26-34) PG MCHC 34.5 (30-36) % RDW 12.3 (11.6-14.8) % Plt Count 143 L (150-400) X10^3/uL Neut % (Auto) 57.1 (50-75) % Lymph % (Auto) 26.1 (25-40) % [place] % (Auto) 9.9 (3-14) % Eos % (Auto) 5.5 H (2-4) % Baso % (Auto) 1.4 (0-2) % Neut # (Auto) 3000 (2860-9042) /uL Lymph # (Auto) 1400 (4643-7952) /uL [place] # (Auto) 500 (0-900) /uL Eos # (Auto) 300 (0-450) /uL Baso # (Auto) 100 (0-100) /uL Sodium 141 (137-145) mmol/L Potassium 5.0 (3.4-5.1) mmol/L Chloride 110 H (98-107) mmol/L Carbon Dioxide 26 (22-32) mmol/L BUN 25 H (7-17) mg/dL Creatinine 0.66 (0.52-1.04) mg/dL Estimated GFR > 60.0 (>60) mL/min BUN/Creatinine Ratio 37.9 H (6-22) Glucose 100 (80-110) mg/dL Calcium 9.4 (8.4-10.2) mg/dL Total Bilirubin 0.5 (0.2-1.3) mg/dL AST 34 (14-36) IU/L ALT 26 (<35) IU/L Alkaline Phosphatase 55 (38-126) U/L Total Creatine Kinase 70 (30-135) U/L CK-MB (CK-2) TNP CK-MB (CK-2) Rel Index TNP Troponin I < 0.012 (0.01-0.034) ng/mL Total Protein 7.3 (6.3-8.2) g/dL Albumin 4.1 (3.5-5.0) g/dL Globulin 3.2 (1.7-4.1) g/dL Albumin/Globulin Ratio 1.3 (1.0-2.8) Lipase 113 (23-300) U/L Imaging Data Chest x-ray: Radiologist's Impression: [address] [address] XRay Report Signed Patient: Carol Finley MR#: [id number] : 1950 Acct:[id number] Age/Sex: 71 / F Date of Service: 09/20/21 Loc: ED Accession Number: [id number] ?? Procedure: XR chest 1V Ordering Provider: Abdirashid Browning D.O. PROCEDURE:? XR CHEST 1V ? INDICATIONS:? chest pain ? TECHNIQUE:? One view of the chest was acquired.? ? COMPARISON:? [facility], , XR CHEST 1 VIEW, 08/07/2017, 12:39. ? FINDINGS:? ? Surgical changes and devices:? Fusion hardware in visualized portion of lower cervical spine is seen. ? Lungs and pleura:? Chronic increased interstitial lung markings are noted.? No definite focal infiltrate.? No pleural effusions or pneumothorax.? ? Mediastinum:? Mediastinal contours appear normal.? Heart size is normal.? ? Bones and chest wall:? No suspicious bony lesions.? Overlying soft tissues appear unremarkable.? ? IMPRESSION:? Suggestion of chronic interstitial lung parenchymal disease.? No definite focal infiltrate.? No pleural effusion or pneumothorax. ? ? Dictated by: Ranjan Howell M.D. on 09/20/2021 at 21:35 ? ? Approved by: Ranjan Howell M.D. on 09/20/2021 at 21:39 CT scan - head: Radiologist's Impression: [address] [address] [address] Scan Report Signed Patient: aCrol Finley MR#: [id number] : 1950 Acct:[id number] Age/Sex: 71 / F Date of Service: 09/20/21 Loc: ED Accession Number: [id number] ?? Procedure: CT head/brain wo con Ordering Provider: Abdirashid Browning D.O. PROCEDURE:? CT HEAD/BRAIN WO CON ? INDICATIONS:? HTN and headache ? TECHNIQUE:? Noncontrast 4.5 mm thick angled axial sections acquired from the foramen magnum to the vertex, with coronal and sagittal reformats.? For radiation dose reduction, the following was used:? automated exposure control, adjustment of mA and/or kV according to patient size.? ? COMPARISON:? None. ? FINDINGS:? Image quality:? Excellent.? ? CSF spaces:? Basal cisterns are patent.? No extra-axial fluid collections.? The ventricles are symmetric in size and shape.? ? Brain:? There is a partially calcified isodense extra-axial mass within the posterior left parietal occipital lobe measuring 2.3 x 2.6 by 2.7 cm.? There is no midline shift.? No appreciable vasogenic edema.? There is cerebral volume loss for age, with resultant ventricular and sulcal prominence.? There are periventricular and deep white matter chronic small vessel ischemic changes.? There is intracranial internal carotid artery atherosclerosis.? ? Skull and face:? Calvarium and visualized facial bones appear intact, without suspicious lesions.? ? Sinuses:? Visualized sinuses and mastoids are clear.? ? IMPRESSION:? ? 1. Isodense mass with calcification in the left posterior parietal lobe suspicious for meningioma.? No priors are available for comparison.? Further evaluation with MRI brain with without contrast is recommended. ? ? Dictated by: Stephanie Christina M.D. on 09/21/2021 at 0:37 ? ? Approved by: Stephanie Christina M.D. on 09/21/2021 at 0:39?? ECG Data Attestation: I personally reviewed and interpreted this ECG as follows: Interpretation: Sinus rhythm Ventricular rate he Left axis deviation Normal QRS Normal QTC No ST T wave changes MDM Narrative Medical decision making narrative: Blood pressure did improve somewhat from triage without any intervention here in the ER. No fevers. No nose bleed today as this was yesterday. No chest pain or shortness of breath. No indication for ACS, CHF, acute renal failure. No signs of pulmonary edema. CT scan was ordered because of the headache that she is having despite the fact that she has had the headache that she presents with today for the past [address] does show findings that are consistent with a meningioma. Patient states she has never had imaging of her head of the past and has never been told anything about having him that angioma. Informed her that this could potentially be the cause of her headaches and that she needed to talk with her primary doctor about further evaluation to include an MRI. We did discuss how she should be taking her blood pressure at home. We discussed return precautions and follow-up instructions. She expressed understanding and agreement. Discharge Plan Departure Patient Disposition: Home Clinical Impression: Hypertension, Meningioma Instructions: Meningioma, DI for High Blood Pressure Activity Restrictions/Additional Instructions: It is important that you take your blood pressure at home like we discussed. Continue to take all of your blood pressure medications. I do recommend you contact your primary doctor to follow-up on the incidental finding of the meningioma on your head CT today. You will most likely need a MRI for further evaluation of this. Return to the emergency department for any new or worsening symptoms Prescriptions: No Action Disabled Parking Permit Qty: 1 0RF valsartan 160 mg tablet 160 mg PO .COMPLEX MDD 320mg Qty: 90 2RF Rx Instructions: 160 mg PO Q. Evening; valsartan 80 mg tablet See Rx Instructions PO .COMPLEX MDD 320mg Qty: 180 3RF Rx Instructions: one to two tabs PO Q AM; Referrals: Celia Dickey PA-C [Primary Care Provider] -
--- NOTE | 2021-09-20 23:58 | DI.CT.S_ITS ---
PROCEDURE: CT HEAD/BRAIN WO CON INDICATIONS: HTN and headache TECHNIQUE: Noncontrast 4.5 mm thick angled axial sections acquired from the foramen magnum to the vertex, with coronal and sagittal reformats. For radiation dose reduction, the following was used: automated exposure control, adjustment of mA and/or kV according to patient size. COMPARISON: None. FINDINGS: Image quality: Excellent. CSF spaces: Basal cisterns are patent. No extra-axial fluid collections. The ventricles are symmetric in size and shape. Brain: There is a partially calcified isodense extra-axial mass within the posterior left parietal occipital lobe measuring 2.3 x 2.6 by 2.7 cm. There is no midline shift. No appreciable vasogenic edema. There is cerebral volume loss for age, with resultant ventricular and sulcal prominence. There are periventricular and deep white matter chronic small vessel ischemic changes. There is intracranial internal carotid artery atherosclerosis. Skull and face: Calvarium and visualized facial bones appear intact, without suspicious lesions. Sinuses: Visualized sinuses and mastoids are clear. IMPRESSION: 1. Isodense mass with calcification in the left posterior parietal lobe suspicious for meningioma. No priors are available for comparison. Further evaluation with MRI brain with without contrast is recommended. Dictated by: Stephanie Christina M.D. on 09/21/2021 at 0:37 Approved by: Stephanie Christina M.D. on 09/21/2021 at 0:39
[2021-09-21 01:11] VITALS: BP 187/95; RESP 16; O2SAT 98
== END 2021-09-21 01:12 | disposition home or self-care (01) ==
PROVIDERS: Emergency Provider Emergency Medicine; PCP Physician Assistant Medical
DX: I10 Essential (primary) hypertension (principal); D32.0 Benign neoplasm of cerebral meninges
CPT/HCPCS: 36415; 70450; 71045; 80053; 82550; 83690; 84484; 85025; 93005; 93010; 99283; 99284

== ENCOUNTER → 2021-09-27 10:49 | Outpatient (CLI) | payer MEDICARE, OTHER, SELFPAY ==
[2021-09-27 19:33] LABS: Add Manual Diff / Slide Review NO; Basophils Absolute Auto 100 /uL (0-100); Basophils Percent Auto 1.2 % (0-2); Eosinophils Absolute Auto 400 /uL (0-450); Eosinophils Percent Auto 8.2 % (2-4); Hematocrit 42.3 % (36-46); Hemoglobin 14.3 g/dL (12.0-16.0); Lymphocytes Absolute Auto 1200 /uL (1100-4500); Lymphocytes Percent Auto 24.8 % (25-40); Mean Corpuscular HGB Conc 33.9 % (30-36); Mean Corpuscular Hemoglobin 32.7 PG (26-34); Mean Corpuscular Volume 96.4 fL (80-100); Monocytes Absolute Auto 400 /uL (0-900); Monocytes Percent Auto 7.4 % (3-14); Neutrophils Absolute Auto 2800 /uL (1500-7000); Neutrophils Percent Auto 58.4 % (50-75); Platelet Count 139 X10^3/uL (150-400); Red Blood Cell Count 4.39 X10^6/uL (4.0-5.2); Red Cell Distribution Width 12.5 % (11.6-14.8); White Blood Cell Count 4.9 X10^3/uL (4.5-11.0)
[2021-09-27 19:38] LABS: Alanine Aminotransferase 27 IU/L (<35); Albumin Globulin Ratio 1.3 (1.0-2.8); Alkaline Phosphatase 75 U/L (38-126); Aspartate Aminotransferase 26 IU/L (14-36); BUN Creatinine Ratio 21.5 (6-22); Bilirubin Total 0.4 mg/dL (0.2-1.3); Blood Urea Nitrogen 17 mg/dL (7-17); Calcium 9.8 mg/dL (8.4-10.2); Carbon Dioxide 33 mmol/L (22-32); Chloride 106 mmol/L (98-107); Cholesterol 199 mg/dL (140-199); Estimated Glomerular Filt Rate > 60.0 mL/min (>60); Glucose 98 mg/dL (80-110); HDL Cholesterol 67 mg/dL (40-60); HEMOLYSIS < 15 (0-50); LDL Cholesterol Calculated 117 mg/dL (<100); Potassium 4.4 mmol/L (3.4-5.1); Sodium 141 mmol/L (137-145); Triglycerides 76 mg/dL (35-150)
== END ==
PROVIDERS: PCP Physician Assistant Medical; Visit Provider Physician Assistant
DX: Z87.898 Personal history of other specified conditions (principal); I10 Essential (primary) hypertension; E78.5 Hyperlipidemia, unspecified; Z79.899 Other long term (current) drug therapy
CPT/HCPCS: 80053; 80061; 85025

== ENCOUNTER → 2021-10-04 14:53 | Outpatient (CLI) | payer MEDICARE, OTHER, SELFPAY ==
--- NOTE | 2021-10-04 14:56 | DI.MRI.S_ITS ---
PROCEDURE: MR HEAD/BRAIN WO/W CON INDICATIONS: Evaluate recent finding of a meningioma TECHNIQUE: Noncontrast axial T1 spin echo, axial T2 fast spin echo, sagittal and axial FLAIR, coronal T2 fast spin echo, axial gradient echo, axial diffusion and ADC through the brain. After the administration of contrast, axial and coronal 3D VIBE or T1 spin echo with fat saturation through the brain. COMPARISON: [facility], CT, CT HEAD/BRAIN WO CON, 09/21/2021, 0:07. FINDINGS: There is an enhancing extra-axial mass with a broad dural base on the occipital inner table with a small dural tail noted posteriorly and superiorly (series 14, image 103 and series 13, image 84, for example). The mass measures approximately 2.5 x 2.6 cm maximum axial dimension and 2.4 cm maximum craniocaudal dimension (not including the dural tail). Mild associated mass effect manifesting as parenchymal displacement with diaz matter buckling. No associated vasogenic edema. Low ADC signal of the mass suggests high cellularity. No other abnormal intracranial enhancement identified. No restricted diffusion to indicate recent ischemia. The major intracranial vascular flow-related signal voids are maintained. No abnormal intracranial susceptibility. Midline structures are normal in configuration. IMPRESSION: Enhancing extra-axial mass adjacent to the left occipital lobe consistent with meningioma. No evidence of parenchymal or calvarial invasion. Mild associated mass effect without vasogenic edema. Dictated by: Osiel Haro M.D. on 10/04/2021 at 16:00 Approved by: Osiel Haro M.D. on 10/04/2021 at 16:04
== END ==
PROVIDERS: PCP Family Medicine; Referring Provider Family Medicine; Visit Provider Family Medicine
DX: G93.89 Other specified disorders of brain (principal); M43.22 Fusion of spine, cervical region
CPT/HCPCS: 70553; A9579

== ENCOUNTER → 2021-11-29 11:08 | Outpatient (CLI) | payer MEDICARE, OTHER, SELFPAY ==
--- NOTE | 2021-11-29 | DI.MRI.S_ITS ---
PROCEDURE: MR CERVICAL SPINE WO CON INDICATIONS: NECK PAIN/SUSPICIOUS SPOT ON PREVIOUS XRAY TECHNIQUE: Noncontrast sagittal T1 spin echo and T2 fast spin echo, sagittal STIR, foraminal oblique sagittal T2 fast spin echo, and axial gradient echo or T2 fast spin echo through the cervical spine. COMPARISON: Outside Facility, RG, XR C-SPINE 4-6V, 11/14/2021, 15:28. FINDINGS: Image quality: Limited by susceptibility artifact related to extensive metallic orthopedic hardware. Alignment and Curvature: There is normal bony alignment. Bones: Postsurgical changes compatible with C3-C7 posterior fusion as well as C3-C6 laminectomies noted. Spinal Cord: Visualized spinal cord has normal size and signal. No cerebellar tonsillar herniation. Paraspinous Soft Tissues: No paravertebral masses. Prevertebral soft tissues are normal in thickness. C2-C3: Loss of disc signal. Mild, diffuse disc bulge. No central stenosis. Mild bilateral facet hypertrophy. Moderate right and mild left neural foraminal narrowing. No neural compression. C3-C4: Status post fusion and laminectomy. Loss of disc signal and height. No central stenosis. No neural foraminal narrowing. No neural compression. C4-C5: Status post fusion and laminectomy. Loss of disc signal and height. No central stenosis. Neural foramina are poorly visualized due to susceptibility artifact and cannot be evaluated. C5-C6: Status post fusion and laminectomy. Loss of disc signal and height. No central stenosis. Neural foramina are poorly visualized due to susceptibility artifact and cannot be evaluated. C6-C7: Status post fusion. Loss of disc signal and height. No central stenosis. No neural foraminal narrowing. No neural compression. No definite edema noted in the C7 vertebral body adjacent to orthopedic screws. C7-T1: Loss of disc signal and height. Moderate, diffuse disc bulge. Mild bilateral facet hypertrophy. Mild ligamentum flavum hypertrophy. Moderate narrowing of the central canal. Moderate bilateral neural foraminal narrowing. No neural compression. IMPRESSION: 1. Postsurgical changes. 2. No abnormality identified in the C7 vertebral body that would correspond to lucency identified by plain film radiograph. No definite edema identified in the C7 vertebral body adjacent to the transpedicular screws. If there is clinical concern for loosening of the transpedicular screws or are early infection, then CT scan of the cervical spine should be considered for additional evaluation. 3. Multilevel degenerative disc disease. 4. No severe central canal narrowing. 5. No definite severe neural foraminal narrowing, however the bilateral C4-C5 and C5-C6 are neural foramina are obscured by susceptibility artifact and cannot be evaluated. Dictated by: Jimena Cowan MD, PhD on 11/29/2021 at 16:04 Approved by: Jimena Cowan MD, PhD on 11/29/2021 at 16:14
== END ==
PROVIDERS: PCP Family Medicine; Referring Provider Psychiatry & Neurology Neurology; Visit Provider Psychiatry & Neurology Neurology
DX: M50.11 Cervical disc disorder with radiculopathy, high cervical region (principal); Z98.1 Arthrodesis status
CPT/HCPCS: 72141

== ENCOUNTER → 2022-01-18 11:25 | Outpatient (CLI) | payer MEDICARE, OTHER, SELFPAY ==
--- NOTE | 2022-01-18 | DI.MRI.S_ITS ---
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 After the administration of contrast, axial and coronal T1 spin echo with fat saturation through the brain. COMPARISON: [facility], MR, MR HEAD/BRAIN WO/W CON, 10/04/2021, 15:13. [facility], MR, MR CERVICAL SPINE WO CON, 11/29/2021, 11:27. [facility], CT, CT HEAD/BRAIN WO CON, 09/21/2021, 0:07. FINDINGS: Image quality: Excellent. CSF spaces: Basal cisterns are patent. No extra-axial fluid collections. Ventricles are normal in size and shape. Brain: Along the posterior aspect of the left occipital lobe, there is again seen a mass that is believed to be extra-axial. On postcontrast imaging, this demonstrates dense relatively uniform enhancement. A dural tail can be seen posteriorly and laterally, as on series 13, image 91. This lesion measures 2.3 cm AP by 2.4 cm transversely, with a craniocaudal extent of 2.8 cm. This is relatively similar to the prior examination. No significant associated brain edema can be seen. No additional intracranial masses or abnormal enhancement can be seen. No midline shift. There is cerebral volume loss for age. There is periventricular white matter chronic small vessel ischemic change. The brainstem appears normal. Diffusion-weighted images demonstrate no acute ischemic insults. No chronic ischemic insults. Normal intravascular flow voids are present. Skull and face: Calvarial marrow is normal in signal. Orbits appear normal. Sinuses: Sinuses and mastoids appear clear. IMPRESSION: No significant interval change can be seen of the presumed meningioma posterior to the left occipital lobe. Dictated by: Pablito Burrows M.D. on 01/18/2022 at 11:31 Approved by: Pablito Burrows M.D. on 01/18/2022 at 11:34
== END ==
PROVIDERS: PCP Family Medicine; Referring Provider Psychiatry & Neurology Neurology; Visit Provider Psychiatry & Neurology Neurology
DX: D42.0 Neoplasm of uncertain behavior of cerebral meninges (principal); G44.221 Chronic tension-type headache, intractable
CPT/HCPCS: 70553

== ENCOUNTER → 2022-02-07 08:22 | Outpatient (CLI) | payer MEDICARE, OTHER, SELFPAY ==
[2022-02-07 18:48] LABS: Add Manual Diff / Slide Review NO; Basophils Absolute Auto 0 /uL (0-100); Basophils Percent Auto 1.2 % (0-2); Eosinophils Absolute Auto 400 /uL (0-450); Eosinophils Percent Auto 8.5 % (2-4); Hematocrit 37.5 % (36-46); Lymphocytes Absolute Auto 1100 /uL (1100-4500); Lymphocytes Percent Auto 26.4 % (25-40); Mean Corpuscular HGB Conc 34.6 % (30-36); Mean Corpuscular Hemoglobin 33.3 PG (26-34); Mean Corpuscular Volume 96.4 fL (80-100); Monocytes Absolute Auto 400 /uL (0-900); Monocytes Percent Auto 10.4 % (3-14); Neutrophils Absolute Auto 2200 /uL (1500-7000); Neutrophils Percent Auto 53.5 % (50-75); Platelet Count 144 X10^3/uL (150-400); Red Blood Cell Count 3.89 X10^6/uL (4.0-5.2); Red Cell Distribution Width 12.8 % (11.6-14.8); White Blood Cell Count 4.1 X10^3/uL (4.5-11.0)
[2022-02-07 19:03] LABS: Alanine Aminotransferase 33 IU/L (<35); Albumin 3.6 g/dL (3.5-5.0); Albumin Globulin Ratio 1.3 (1.0-2.8); Alkaline Phosphatase 75 U/L (38-126); Aspartate Aminotransferase 32 IU/L (14-36); BUN Creatinine Ratio 31.6 (6-22); Bilirubin Total 0.4 mg/dL (0.2-1.3); Blood Urea Nitrogen 24 mg/dL (7-17); Calcium 8.9 mg/dL (8.4-10.2); Carbon Dioxide 28 mmol/L (22-32); Chloride 108 mmol/L (98-107); Estimated Glomerular Filt Rate > 60 mL/min (>60); Globulin 2.8 g/dL (1.7-4.1); Glucose 96 mg/dL (80-110); HEMOLYSIS < 15 (0-50); Potassium 4.6 mmol/L (3.4-5.1); Sodium 140 mmol/L (137-145); Total Protein 6.4 g/dL (6.3-8.2)
== END ==
PROVIDERS: PCP Family Medicine; Visit Provider Family Medicine
DX: K21.9 Gastro-esophageal reflux disease without esophagitis (principal); I10 Essential (primary) hypertension
CPT/HCPCS: 80053; 85025

== ENCOUNTER → 2022-02-24 13:42 | Outpatient (CLI) | payer MEDICARE, OTHER, SELFPAY ==
--- NOTE | 2022-02-24 | DI.CT.S_ITS ---
PROCEDURE: CT HEAD/BRAIN WO CON INDICATIONS: Neoplasm of unspecified behavior of brain TECHNIQUE: Noncontrast 4.5 mm thick angled axial sections acquired from the foramen magnum to the vertex, with coronal and sagittal reformats. For radiation dose reduction, the following was used: automated exposure control, adjustment of mA and/or kV according to patient size. COMPARISON: [facility], MR, MR HEAD/BRAIN WO/W CON, 01/18/2022, 11:53. [facility], CT, CT HEAD/BRAIN WO CON, 09/21/2021, 0:07. FINDINGS: Image quality: Excellent. CSF spaces: Basal cisterns are patent. No extra-axial fluid collections. The ventricles are symmetric in size and shape. Brain: There has been interval resection of the previous left posterior parietal occipital mass. Craniotomy changes are present. Low-attenuation presumed to be related to postoperative fluid and air are noted within the surgical . Linear hyperdensity is noted the extra-axial space measuring 2 mm in greatest width. Skull and face: Calvarium and visualized facial bones appear intact, noting left parietal occipital craniotomy change. Sinuses: Visualized sinuses and mastoids are clear. IMPRESSION: Left posterior parietal occipital craniotomy with postsurgical changes at site of previous meningioma. Areas of low attenuation and air are present presumably postsurgical. However, recommend correlation of time frame since surgery as other etiology such as developing abscess cannot be excluded if expected time for expected resorption of air and fluid has been exceeded. Linear hyperdensity known the extra-axial space most likely related to postoperative hemorrhage. Again, recommend correlation to time since surgery and continued interval follow-up. Dictated by: Stephanie Christina M.D. on 02/24/2022 at 14:17 Approved by: Stephanie Christina M.D. on 02/24/2022 at 14:20
[2022-02-24 14:45] LABS: BUN Creatinine Ratio 32.9 (6-22); Blood Urea Nitrogen 26 mg/dL (7-17); Calcium 9.3 mg/dL (8.4-10.2); Carbon Dioxide 31 mmol/L (22-32); Chloride 103 mmol/L (98-107); Estimated Glomerular Filt Rate > 60 mL/min (>60); Glucose 113 mg/dL (80-110); HEMOLYSIS < 15 (0-50); Potassium 4.7 mmol/L (3.4-5.1); Sodium 135 mmol/L (137-145)
== END ==
PROVIDERS: PCP Family Medicine; Referring Provider Nurse Practitioner Family; Visit Provider Nurse Practitioner Family
DX: D49.6 Neoplasm of unspecified behavior of brain (principal)
CPT/HCPCS: 36415; 70450; 80048

== ENCOUNTER → 2022-09-05 11:45 | Outpatient (CLI) | payer MEDICARE, OTHER, SELFPAY ==
[2022-09-05 18:55] LABS: Alanine Aminotransferase 35 IU/L (<35); Albumin 4.1 g/dL (3.5-5.0); Albumin Globulin Ratio 1.2 (1.0-2.8); Alkaline Phosphatase 109 U/L (38-126); Aspartate Aminotransferase 31 IU/L (14-36); BUN Creatinine Ratio 32.9 (6-22); Bilirubin Total 0.5 mg/dL (0.2-1.3); Blood Urea Nitrogen 27 mg/dL (7-17); Calcium 9.5 mg/dL (8.4-10.2); Carbon Dioxide 25 mmol/L (22-32); Chloride 102 mmol/L (98-107); Estimated Glomerular Filt Rate > 60 mL/min (>60); Globulin 3.5 g/dL (1.7-4.1); Glucose 107 mg/dL (80-110); HEMOLYSIS < 15 (0-50); Potassium 4.3 mmol/L (3.4-5.1); Sodium 139 mmol/L (137-145); Total Protein 7.6 g/dL (6.3-8.2)
[2022-09-05 19:02] LABS: Hemoglobin A1C% w Est Avg Glu 5.4 % (4.0-6.0)
[2022-09-05 19:45] LABS: Vitamin B12 305 pg/mL (239-931)
== END ==
PROVIDERS: PCP Family Medicine; Visit Provider Family Medicine
DX: Z79.899 Other long term (current) drug therapy (principal); E78.5 Hyperlipidemia, unspecified; I10 Essential (primary) hypertension
CPT/HCPCS: 80053; 82607; 83036; 84443

== ENCOUNTER → 2023-02-22 10:16 | Outpatient (CLI) | payer MEDICARE, OTHER, SELFPAY ==
--- NOTE | 2023-02-22 10:17 | DI.RAD.S_ITS ---
PROCEDURE: XR CERVICAL SPINE 4V OR 5V INDICATIONS: NECK PAIN TECHNIQUE: 5 views of the cervical spine acquired. COMPARISON: None. FINDINGS: Bones: No fractures or dislocations to the T1 level. Posterior fusion hardware at C3-C7. Multilevel disc space narrowing and endplate osteophyte formation. Multilevel facet hypertrophy. Oblique images demonstrate no bony foraminal stenoses. Soft tissues: No prevertebral soft tissue swelling. IMPRESSION: 1. Postsurgical sequelae. 2. Multilevel degenerative disc and facet disease. 3. No acute fracture. No osseous lesion. If symptoms and/or clinical suspicion for pathology persist, further assessment with repeat, or advanced imaging (e.g., CT, MRI, or bone scan) may be helpful for further assessment. Dictated by: Asmita Trejo M.D. on 02/22/2023 at 11:36 Approved by: Asmita Trejo M.D. on 02/22/2023 at 11:36
--- NOTE | 2023-02-22 10:19 | DI.MRI.S_ITS ---
PROCEDURE: MR HEAD/BRAIN WO/W CON INDICATIONS: 72-year-old female meningioma status post surgical resection TECHNIQUE: Noncontrast axial T1 spin echo, axial T2 fast spin echo, sagittal and axial FLAIR, coronal T2 fast spin echo, axial gradient echo, axial diffusion and ADC through the brain. After the administration of contrast, axial and coronal and sagittal 3D VIBE or T1 spin echo with fat saturation through the brain. COMPARISON: [facility], MR, MR HEAD/BRAIN WO/W CON, 01/18/2022, 11:53. FINDINGS: Image quality: Excellent. CSF Spaces: Basal cisterns are patent. No extra-axial fluid collections. Ventricles are normal in size and shape. Brain: No intracranial masses or hemorrhage. Brainstem appears normal. Diffusion-weighted sequence is unremarkable without evidence of acute infarct. Normal intravascular flow voids are present. Mild left occipital gliosis and or edema noted. Previously described occipital meningioma is no longer present Skull and face: Left occipital craniotomy Sinuses: Sinuses and mastoids appear clear. IMPRESSION: Mild left occipital gliosis and or edema status post meningioma resection. No evidence of complication. Approved by: Jose Orozco M.D. on 02/22/2023 at 18:32
--- NOTE | 2023-02-22 10:19 | DI.MRI.S_ITS ---
PROCEDURE: MR CERVICAL SPINE WO CON INDICATIONS: worsening pain in neck and numbness in hands feet TECHNIQUE: Noncontrast sagittal T1 spin echo and T2 fast spin echo, sagittal STIR, foraminal oblique sagittal T2 fast spin echo, and axial gradient echo or T2 fast spin echo through the cervical spine. COMPARISON: [facility], CR, XR CERVICAL SPINE 4V OR 5V, 02/22/2023, 10:13. [facility], MR, MR CERVICAL SPINE WO CON, 11/29/2021, 11:27. FINDINGS: Image quality: Degraded by metallic artifact. Alignment and Curvature: There is loss of normal cervical lordosis. 2 mm of anterolisthesis of C7 on T1. Bone Marrow: Marrow demonstrates normal overall signal. Mild reactive signal throughout the endplates of the cervical and upper thoracic spine. Posterior fusion hardware at C3-C7. Spinal Cord: Visualized spinal cord has normal size and signal. No cerebellar tonsillar herniation. Paraspinous Soft Tissues: No paravertebral masses. Prevertebral soft tissues are normal in thickness. C2-C3: Disc desiccation. Moderate facet and uncovertebral hypertrophy. No definite canal stenosis. Increased, severe bilateral foraminal stenosis with bilateral C3 nerve root compression. C3-C4: Posterior fusion. Moderate disc height loss. No definite canal stenosis. Mild bilateral foraminal stenosis. No significant change. C4-C5: Posterior fusion. Moderate disc height loss. No definite canal stenosis. Suboptimal evaluation of the neural foramina. C5-C6: Posterior fusion. Moderate disc desiccation. No definite canal stenosis. Suboptimal evaluation of the neural foramina. C6-C7: Posterior fusion. Moderate disc desiccation. No definite canal stenosis. Suboptimal evaluation of the neural foramina. C7-T1: Moderate disc height loss and desiccation. Mild diffuse disc bulge. Mild facet and uncovertebral hypertrophy bilaterally. Mild canal stenosis. Moderate bilateral foraminal stenosis. No significant change. IMPRESSION: 1. Postsurgical sequelae. 2. Multilevel degenerative disc and facet disease, as well as uncovertebral hypertrophy. 3. No definite canal stenosis. 4. Multilevel foraminal stenoses, worst at C2-C3 where there is associated intraforaminal nerve root compression. Recommend correlation with clinical symptoms to ascertain relevance of these findings. Dictated by: Asmita Trejo M.D. on 02/22/2023 at 14:56 Transcribed by: PRANEETH on 02/22/2023 at 15:00 Approved by: Asmita Trejo M.D. on 02/22/2023 at 16:46
[2023-02-22 11:27] LABS: Add Manual Diff / Slide Review NO; Basophils Absolute Auto 100 /uL (0-100); Basophils Percent Auto 1.7 % (0-2); Eosinophils Absolute Auto 200 /uL (0-450); Eosinophils Percent Auto 5.1 % (2-4); Hematocrit 40.6 % (36-46); Hemoglobin 14.1 g/dL (12.0-16.0); Lymphocytes Absolute Auto 1600 /uL (1100-4500); Lymphocytes Percent Auto 36.6 % (25-40); Mean Corpuscular HGB Conc 34.7 % (30-36); Mean Corpuscular Hemoglobin 32.9 PG (26-34); Monocytes Absolute Auto 400 /uL (0-900); Monocytes Percent Auto 8.7 % (3-14); Neutrophils Absolute Auto 2100 /uL (1500-7000); Neutrophils Percent Auto 47.9 % (50-75); Platelet Count 150 X10^3/uL (150-400); Red Blood Cell Count 4.28 X10^6/uL (4.0-5.2); Red Cell Distribution Width 12.8 % (11.6-14.8); White Blood Cell Count 4.4 X10^3/uL (4.5-11.0)
[2023-02-22 11:33] LABS: Alanine Aminotransferase 31 IU/L (<35); Albumin Globulin Ratio 1.4 (1.0-2.8); Alkaline Phosphatase 99 U/L (38-126); Aspartate Aminotransferase 26 IU/L (14-36); BUN Creatinine Ratio 23.9 (6-22); Bilirubin Total 0.4 mg/dL (0.2-1.3); Blood Urea Nitrogen 17 mg/dL (7-17); Calcium 8.9 mg/dL (8.4-10.2); Carbon Dioxide 26 mmol/L (22-32); Chloride 105 mmol/L (98-107); Cholesterol 228 mg/dL (140-199); Estimated Glomerular Filt Rate > 60 mL/min (>60); Globulin 2.9 g/dL (1.7-4.1); Glucose 105 mg/dL (80-110); HDL Cholesterol 80 mg/dL (40-60); HEMOLYSIS < 15 (0-50); LDL Cholesterol Calculated 133 mg/dL (<100); Potassium 4.1 mmol/L (3.4-5.1); Sodium 137 mmol/L (137-145); Total Protein 6.9 g/dL (6.3-8.2); Triglycerides 76 mg/dL (35-150)
[2023-02-22 12:14] LABS: Thyroid Stimulating Hormone 0.496 uIU/mL (0.47-4.68)
[2023-02-23 12:30] LABS: Labcorp Hemoglobin (Hb) A1c 5.5 % (4.8-5.6)
== END ==
PROVIDERS: PCP Family Medicine; Referring Provider Anesthesiology; Visit Provider Anesthesiology
DX: D32.0 Benign neoplasm of cerebral meninges (principal); G93.89 Other specified disorders of brain; M50.30 Other cervical disc degeneration, unspecified cervical region; M47.892 Other spondylosis, cervical region; M48.02 Spinal stenosis, cervical region; I10 Essential (primary) hypertension; E78.2 Mixed hyperlipidemia; M48.9 Spondylopathy, unspecified; R20.0 Anesthesia of skin; R20.2 Paresthesia of skin; E66.9 Obesity, unspecified; Z13.1 Encounter for screening for diabetes mellitus; Z98.1 Arthrodesis status; Z98.890 Other specified postprocedural states; Z79.899 Other long term (current) drug therapy
CPT/HCPCS: 70553; 72050; 72141; 80053; 80061; 83036; 84443; 85025; A9579

== ENCOUNTER → 2023-03-20 11:35 | Outpatient (CLI) | payer MEDICARE, OTHER, SELFPAY ==
[2023-03-20 19:54] LABS: HEMOLYSIS < 15 (0-50); Iron 105 ug/dL (37-170)
[2023-03-20 20:06] LABS: Percent Iron Saturation 29 % (15-50); Total Iron Binding Capacity 364 ug/dL (265-497); Transferrin 301 mg/dL (206-381)
[2023-03-20 20:26] LABS: TSH w/ Reflex to FT4 0.78 uIU/mL (0.47-4.68)
[2023-03-20 20:32] LABS: Ferritin 81 ng/mL (11-264)
[2023-03-23 00:16] LABS: Zinc 84 ug/dL (44-115)
[2023-03-26 14:56] LABS: Vitamin B12 Reflex MMA if <400 660 pg/mL (239-931)
== END ==
PROVIDERS: PCP Family Medicine; Visit Provider Family Medicine
DX: D32.0 Benign neoplasm of cerebral meninges (principal); I10 Essential (primary) hypertension; R43.8 Other disturbances of smell and taste
CPT/HCPCS: 82607; 82728; 83540; 83550; 84443; 84630

== ENCOUNTER 2023-07-19 09:12 | Emergency (ER) | payer MEDICARE, OTHER, SELFPAY ==
[2023-07-19 09:14] VITALS: BP 150/74; PULSE 88; RESP 14; TEMP 36.3; O2SAT 99; BMI 37.2
--- NOTE | 2023-07-19 09:23 | ED_ITS ---
HPI - Neck Pain/Injury General Chief Complaint: Neck Pain/Injury Stated Complaint: neck pain/HX of surgery at site Time Seen by Provider: 07/19/23 09:13 Source: patient Mode of arrival: Ambulatory Limitations: no limitations History of Present Illness HPI Narrative: Patient is a 73-year-old female who is here for evaluation of left-sided neck discomfort. She states it has been hurting for the past 2-1/2 weeks. She woke up 1 morning with the discomfort. Last evening it got significantly worse. There was not 1 specific incident that caused the pain. She has had a cervical fusion many years ago. She states that on her way to the emergency department this morning she felt and heard a large ?crack? and actually afterwards started to feel somewhat better. She is also had a meningioma removed from her left occipital region. Related Data Home Medications Medication Instructions Recorded Confirmed vit C 250 mg-vit E 90 mg-zinc 40 1 tab PO BID 07/11/22 07/16/23 mg-copper 1 fz-iguelu-drysag capsule (PreserVision AREDS-2) Previous Rx's Medication Instructions Recorded Disabled Parking Permit dev ##1 07/28/16 fluocinolone acetonide oil 0.01 % 5 drp otic (ear) ONCE #20 mL 03/06/23 ear drops valacyclovir 1 gram tablet 1,000 mg PO BID #20 tabs 05/15/23 valacyclovir 1 gram tablet 1,000 mg PO DAILY #90 tabs 05/15/23 valsartan 80 mg tablet 120 mg (1.5 x 80 mg) PO DAILY #135 05/15/23 tabs clotrimazole-betamethasone 1 1 applic topical BID 2 weeks #15 07/16/23 %-0.05 % topical cream grams cyclobenzaprine 10 mg tablet 10 mg PO TID PRN muscle spasm #21 07/19/23 tabs Allergies Allergy/AdvReac Type Severity Reaction Status Date / Time No Known Drug Allergies Allergy Verified 07/19/23 09:18 Review of Systems Constitutional Constitutional: Reports system reviewed and no additional complaints, except as documented Musculoskeletal Musculoskeletal: Reports system reviewed and no additional complaints, except as documented Integumentary/Breasts Skin/Breast: Reports system reviewed and no additional complaints, except as documented Neurologic Neurologic: Reports system reviewed and no additional complaints, except as documented Patient History Medical History Candidal vulvitis Peripheral neuropathy Cervical spinal stenosis Osteoarthritis (~1979) Shoulder pain (~2017) Osteopenia Fractures (~1959) Cervical spine disease (~1979) Mumps Measles Chicken pox Cataracts, bilateral (~2020) Abnormal Pap smear of cervix (~2007) Colon polyps Cervical cancer (~09/29/14) Brain cancer (~10/04/21) Preventative health care Well woman exam with routine gynecological exam HPV in female Hx of abnormal cervical Pap smear Cervical cancer screening Constipation Herpes zoster (~2007) Meningioma, cerebral Asthma (~1949) Chronic back pain (~2016) Hypertension Surgical History Anesthesia History of craniotomy (~11/23/22) History of cataract removal with insertion of prosthetic lens H/O LEEP (~09/29/14) History of right hip replacement (~11/26/18) History of tonsillectomy and adenoidectomy History of back surgery (~12/08/17) Hx of cervical spine surgery (~02/21/06) Family History Father Prostate cancer Hypertension High cholesterol Mother Mental health problem History of heart disease Hyperlipidemia Hypertension Social History marital status: details: Lives on [facility] Smoking Status: Never smoker Smoking Status: Never smoker alcohol intake frequency: 0-2 drinks per day Substance Use Type: does not use Exam Initial Vital Signs Initial Vital Signs: Vital Signs Temperature 97.3 F L 07/19/23 09:14 Pulse Rate 88 07/19/23 09:14 Respiratory Rate 14 07/19/23 09:14 Blood Pressure 150/74 H 07/19/23 09:14 Pulse Oximetry 99 07/19/23 09:14 Oxygen Delivery Method Room Air 07/19/23 09:14 HENPR Head: normal to inspection and normocephalic Back/Spine/Pelvis Other: Left-sided paraspinal cervical tenderness. No midline tenderness. Skin Other: Well-healed midline cervical surgical scar consistent with her prior cervical surgical history Neuro General: patient alert and patient awake Course Orders Ordered: ED Orders 07/19/23 09:22 XR cervical spine 2V or 3V Stat Vital Signs Vital signs: Vital Signs - 8 hr 07/19/23 09:14 Temperature 97.3 F L Pulse Rate 88 Respiratory Rate 14 Blood Pressure 150/74 H Pulse Oximetry 99 Oxygen Delivery Method Room Air MDM - Neck Pain/Injury Imaging Data Cervical spine x-ray: Radiologist's Impression: PROCEDURE: XR CERVICAL SPINE 2V OR 3V INDICATIONS: L sided neck pain has had fusion TECHNIQUE: 3 view(s) of the cervical spine were acquired. COMPARISON: [facility], , XR CERVICAL SPINE 4V OR 5V, 02/22/2023, 10:13. FINDINGS: Bones: No fractures or dislocations to the C7 level. The lateral masses of C1 appear intact on the odontoid view. Postsurgical changes from posterior fusion C3-C7 as before. Hardware appears intact. Multilevel degenerative changes of the cervical spine. Soft tissues: No prevertebral soft tissue swelling. IMPRESSION: No acute cervical spine fracture identified. If symptoms persist, follow-up radiographs and/or CT may be helpful for further evaluation. [facility] Narrative Medical decision making narrative: Patient does have left-sided paraspinal muscle tenderness. This is consistent with a muscular origin. X-ray showed no acute pathology. No fevers. No specific trauma. Will treat with muscle relaxers. We also discussed other conservative measures. She was given return precautions. She expressed understanding and agreement. Discharge Plan Departure Patient Disposition: Home Clinical Impression: Cervical muscle strain Instructions: DI for Muscle Strain Activity Restrictions/Additional Instructions: You can continue with the conservative measures such as heat/ice and also massage. You can also continue with the Tylenol/acetaminophen and aspirin. Contact your primary provider for follow-up. Prescriptions: New cyclobenzaprine 10 mg tablet 10 mg PO TID PRN (Reason: muscle spasm) Qty: 21 0RF No Action Disabled Parking Permit Qty: 1 0RF fluocinolone acetonide oil 0.01 % drops 5 drp otic (ear) ONCE Qty: 20 1RF valsartan 80 mg tablet 120 mg PO DAILY Qty: 135 1RF Rx Instructions: stop 160mg tabs valacyclovir 1 gram tablet 1,000 mg PO DAILY Qty: 90 3RF Rx Instructions: take every day to prevent outbreak valacyclovir 1 gram tablet 1,000 mg PO BID Qty: 20 4RF Rx Instructions: start prior to the outbreak clotrimazole-betamethasone 1-0.05 % cream 1 applic topical BID 14 Days Qty: 15 0RF Rx Instructions: small thin amount to effected tissue PreserVision AREDS-2 250-90-40-1 mg capsule 1 tab PO BID Referrals: Celia Orr MD [Primary Care Provider] - Stand Alone Forms: Patient Portal/API
[2023-07-19] MEDS: CYCLOBENZAPRINE 10 MG TABLET PO (10:32)
[2023-07-19 10:39] VITALS: BP 122/78; PULSE 78; RESP 14; O2SAT 99
== END 2023-07-19 10:41 | disposition home or self-care (01) ==
PROVIDERS: Emergency Provider Emergency Medicine; PCP Family Medicine
DX: S16.1XXA Strain of muscle, fascia and tendon at neck level, initial encounter (principal); X58.XXXA Exposure to other specified factors, initial encounter
CPT/HCPCS: 72040; 99283

== ENCOUNTER → 2024-02-14 13:02 | Outpatient (CLI) | payer MEDICARE, OTHER, SELFPAY ==
[2024-02-14 19:27] LABS: Add Manual Diff / Slide Review NO; Basophils Absolute Auto 100 /uL (0-100); Eosinophils Absolute Auto 300 /uL (0-450); Eosinophils Percent Auto 6.6 % (2-4); Hematocrit 41.2 % (36-46); Hemoglobin 13.9 g/dL (12.0-16.0); Lymphocytes Absolute Auto 1200 /uL (1100-4500); Lymphocytes Percent Auto 23.3 % (25-40); Mean Corpuscular HGB Conc 33.8 % (30-36); Mean Corpuscular Hemoglobin 33.1 PG (26-34); Mean Corpuscular Volume 97.9 fL (80-100); Monocytes Absolute Auto 700 /uL (0-900); Monocytes Percent Auto 12.9 % (3-14); Neutrophils Absolute Auto 2900 /uL (1500-7000); Neutrophils Percent Auto 56.2 % (50-75); Platelet Count 159 X10^3/uL (150-400); Red Cell Distribution Width 12.6 % (11.6-14.8); White Blood Cell Count 5.2 X10^3/uL (4.5-11.0)
[2024-02-14 19:53] LABS: Alanine Aminotransferase 36 IU/L (<35); Albumin 4.1 g/dL (3.5-5.0); Albumin Globulin Ratio 1.5 (1.0-2.8); Alkaline Phosphatase 93 U/L (38-126); Aspartate Aminotransferase 32 IU/L (14-36); BUN Creatinine Ratio 30.8 (6-22); Bilirubin Total 0.5 mg/dL (0.2-1.3); Blood Urea Nitrogen 24 mg/dL (7-17); Calcium 9.8 mg/dL (8.4-10.2); Carbon Dioxide 28 mmol/L (22-32); Chloride 108 mmol/L (98-107); Estimated Glomerular Filt Rate > 60 mL/min (>60); Globulin 2.8 g/dL (1.7-4.1); Glucose 95 mg/dL (80-110); HEMOLYSIS < 15 (0-50); Potassium 4.3 mmol/L (3.4-5.1); Sodium 139 mmol/L (137-145); Total Protein 6.9 g/dL (6.3-8.2)
[2024-02-14 20:04] LABS: LDL Cholesterol Direct 78 mg/dL (<100)
[2024-02-14 20:14] LABS: TSH w/ Reflex to FT4 0.54 uIU/mL (0.47-4.68)
== END ==
PROVIDERS: PCP Family Medicine; Visit Provider Family Medicine
DX: E78.2 Mixed hyperlipidemia (principal); I10 Essential (primary) hypertension
CPT/HCPCS: 80053; 83721; 84443; 85025

== ENCOUNTER → 2024-09-25 11:50 | Outpatient (CLI) | payer MEDICARE, OTHER, SELFPAY ==
--- NOTE | 2024-09-25 11:51 | DI.ECHO.S_ITS ---
[facility] : : [address] : : [place] : : [address] : : Phone: [phone] Echocardiogram Report + :Name: JEFF PA Study Date: 09/25/2024 Height: 25 in : [id number] ReadingLocation: Weight: 225 lb : : Gender: Female BSA: 1.0 m2 : :: 1950 Age: 74 yrs BP: 146/92 mmHg: :Reason For Study: Chest pain : : Performed By: Foil Spooler Haley Guillen : :Referring: UYEN STEELE : + Interpretation Summary The left ventricle is normal in size and wall thickness. The ejection fraction is estimated to be 65-70%. The right ventricle is normal in size and function. No significant valvular pathology seen The IVC is of normal diameter and collapses greater than 50% with a sniff. This suggests a low right atrial pressure of 3 mm Hg. Incidental finding in subcostal window, appears to be consistent with a liver cyst. Procedure: A two-dimensional transthoracic echocardiogram with color flow and Doppler was performed. The study quality was technically adequate. There is no prior echocardiogram noted for this patient. The patient was in normal sinus rhythm during the exam. Left Ventricle: The left ventricle is normal in size and wall thickness. There is no thrombus. The ejection fraction is estimated to be 65-70%. There are no focal wall motion abnormalities. Diastolic parameters suggest a relaxation abnormality of the left ventricle, consistent with probable normal filling pressures. Right Ventricle: The right ventricle is normal in size and function. Atria: Both atria are normal in size. There is no Doppler evidence for an interatrial shunt. Mitral Valve: There is mild mitral annular calcification. There is no mitral valve stenosis. There is no mitral regurgitation noted. Aortic Valve: The aortic valve is not well visualized but appears to be tri- leaflet and opens well. There is no aortic valve stenosis. No aortic regurgitation is present. Tricuspid Valve: The tricuspid valve is normal in structure and function. Pulmonary artery pressures cannot be estimated because of the lack of a measurable TR jet velocity but the IVC suggests a CVP of around 3 mmHg. There is trace tricuspid regurgitation. Pulmonic Valve: The pulmonic valve is not well seen, but is grossly normal. There is no pulmonic valvular regurgitation. Great Vessels: The aortic root is normal size. The ascending aorta is normal in size. The aortic arch is normal in size. The IVC is of normal diameter and collapses greater than 50% with a sniff. This suggests a low right atrial pressure of 3 mm Hg. Pericardium/ Pleura There is no pericardial effusion. There is an anterior echo-free space consistent with a fat pad. MMode/2D Measurements & Calculations LVIDd: 4.5 cm LVOT diam: 2.3 cm LVIDs: 3.6 cm Ao root diam: 3.8 cm FS: 18.8 % asc Aorta Diam: 3.5 cm IVSd: 0.74 cm Ao Arch Diam (Prox Trans): 3.0 cm LVPWd: 0.92 cm LV ybarra. diameter/BSA (cm/m^2): 4.3 LV sys. diameter/BSA (cm/m^2): 3.5 LA A2 area: 14.4 cm2 RA long axis: 3.9 cm LA A4 area: 12.3 cm2 RA area: 10.2 cm2 LA length (vol): 4.6 cm RA vol: 22.6 ml LA vol: 32.6 ml RA : 21.9 ml/m2 LA vol index: 31.5 ml/m2 IVC diam: 1.1 cm RVD1 (basal): 2.8 cm TAPSE: 1.8 cm Doppler Measurements & Calculations Ao V2 max: 125.1 cm/sec LVOT Max Raphael: 104.1 cm/sec Ao V2 mean: 77.3 cm/sec LV V1 max P.3 mmHg Ao max P.3 mmHg LV V1 VTI: 20.1 cm Ao mean P.8 mmHg PANCHO(I,D): 3.9 cm2 Ao V2 VTI: 21.5 cm PANCHO(V,D): 3.4 cm2 sev ratio: 0.94 PANCHO indexed to BSA (cm^2/m^2): 3.8 MV E max raphael: 66.7 cm/sec SV(LVOT): 83.4 ml MV A max raphael: 96.2 cm/sec MV E/A: 0.69 Med Peak E' Raphael: 5.7 cm/sec E/E' med: 11.7 Lat Peak E' Raphael: 5.5 cm/sec E/E' lat: 12.1 E/e' average: 11.9 MV dec time: 0.32 sec Reading Physician:01:42 PM
--- NOTE | 2024-09-25 11:52 | DI.NM.S_ITS ---
PROCEDURE: NM NARGIS PERF SPECT R&S PHARM Rest and pharmacological stress myocardial perfusion SPECT with gated imaging and ejection fraction RADIOPHARMACEUTICAL: 26.4 mCi Tc-99m tetrafosmin IV at rest and 25.1 mCi Tc-99m tetrafosmin IV at peak effect of pharmacological stress. [id number] was performed. INDICATIONS: Chest pain TECHNIQUE: Radiopharmaceutical was injected at peak stress test, and also at rest. SPECT images were obtained. SPECT myocardial perfusion images were displayed in short axis, horizontal long axis, and vertical long axis views. Gated images were reviewed using Vibes software. COMPARISON: None. CARDIAC STRESS: A pharmacologic stress test was performed under the supervision of an attending staff, using an infusion of regadenoson 0.4 mg IV. Hemodynamic data: There is normal blood pressure and heart rate response to pharmacologic stress. Symptoms: The patient denied anginal chest pain. EKG: No diagnostic changes of ischemia; no ectopy. FINDINGS: Raw data: There is good myocardial uptake of radiotracer. No significant motion artifacts. Qrpj-ah-gznbp ratio is 0.34 (normal is less than 0.38 for tetrafosmin tracer). Left ventricle function: Gated images demonstrate normal left ventricular wall thickening. No segmental wall motion abnormalities. No transient ischemic dilation; TID is 1.19 (normal less than 1.3). Left ventricle resting end diastolic volume is 70 mL. Left ventricle stress ejection fraction is 73%; normal range is above 45%. Myocardial perfusion: There is normal distribution of activity in the right and left ventricular myocardium. No fixed or reversible perfusion defects. IMPRESSION: Low risk study. No evidence of pharmacologic induced ischemia or scar. Normal LV size and function. Dictated by: Marva Ovalle D.O. on 09/26/2024 at 16:48 Approved by: Marva Ovalle D.O. on 09/26/2024 at 16:50
== END ==
PROVIDERS: PCP Family Medicine; Referring Provider Family Medicine; Visit Provider Family Medicine
DX: I34.81 Nonrheumatic mitral (valve) annulus calcification (principal); R07.9 Chest pain, unspecified
CPT/HCPCS: 78452; 93017; 93306; A9502; J2785

== ENCOUNTER → 2024-10-30 13:55 | Outpatient (CLI) | payer MEDICARE, OTHER, SELFPAY ==
--- NOTE | 2024-10-30 13:57 | DI.MRI.S_ITS ---
PROCEDURE: MR LUMBAR SPINE WO CON INDICATIONS: CERVICAL MYELOPATHY,LUMBAR SPONDYLOLISTHESIS TECHNIQUE: Noncontrast sagittal T1 spin echo and T2 fast echo, sagittal STIR, and T2 fast spin echo through the lumbar spine. In cases with scoliosis, additional coronal T2 fast spin echo may be performed. COMPARISON: None. FINDINGS: Image quality: Excellent. Alignment and Curvature: There is trace, approximately 2 millimeters of L2-L3 retrolisthesis. Bones: Postsurgical changes compatible with left L4-L5 laminotomy. Mild Modic type 1 reactive endplate changes adjacent to the L4-L5 disc. Mild Modic type 1 reactive endplate changes adjacent to the L5-S1 disc. No acute vertebral body compression fractures. Spinal Cord: Conus medullaris terminates at the L1 level. Visualized cord demonstrates normal signal and size. Paraspinous Soft Tissues: No paravertebral masses. T12-L1: Normal appearance. L1-L2: Loss of disc signal. Mild to moderate diffuse disc bulge. Mild narrowing of the central canal. Mild bilateral neural foraminal narrowing. No neural compression. L2-L3: Loss of disc signal and height. Mild to moderate diffuse disc bulge. Mild bilateral facet hypertrophy. Mild ligamentum flavum hypertrophy. Mild to moderate narrowing of the central canal. Moderate right and [id number] left neural foraminal narrowing. No neural compression. L3-L4: Loss of disc signal. Mild, diffuse disc bulge. [id number] bilateral facet hypertrophy. Mild to moderate narrowing of the central canal. Mild bilateral neural foraminal narrowing. No neural compression. L4-L5: Loss of disc signal. Mild, diffuse disc bulge. Severe bilateral facet hypertrophy. Mild ligamentum flavum hypertrophy. Moderate narrowing of the central canal. Moderate right and severe left neural foraminal narrowing with compression of the exiting left L4 nerve root. L5-S1: Loss of disc signal. Moderate bilateral facet hypertrophy. Moderate narrowing of the central canal. Mild bilateral neural foraminal narrowing. No neural compression. IMPRESSION: Postsurgical changes. Multilevel degenerative disc disease. Multilevel facet arthropathy. No severe central canal stenosis. Severe left L4-L5 central canal stenosis with compression of the exiting left L4 nerve root Dictated by: Jimena Cowan MD, PhD on 10/30/2024 at 16:21 Approved by: Jimena Cowan MD, PhD on 10/30/2024 at 16:27
--- NOTE | 2024-10-30 13:57 | DI.MRI.S_ITS ---
PROCEDURE: MR CERVICAL SPINE WO CON INDICATIONS: CERVICAL MYELOPATHY,LUMBAR SPONDYLOLISTHESIS TECHNIQUE: Noncontrast sagittal T1 spin echo and T2 fast spin echo, sagittal STIR, foraminal oblique sagittal T2 fast spin echo, and axial gradient echo or T2 fast spin echo through the cervical spine. COMPARISON: [facility], MR, MR CERVICAL SPINE WO CON, 02/22/2023, 13:04. [facility], CR, XR CERVICAL SPINE 2V OR 3V, 07/19/2023, 9:27. FINDINGS: Image quality: Image quality limited by susceptibility artifact related to metallic fixation hardware. Alignment and Curvature: There is normal bony alignment. Bones: C3-C7 posterior fusion. C3-C6 laminectomies. Minimal Modic type 2 reactive endplate changes noted adjacent to the C3-C4, C4-C5, C5-C6, C6-C7, C7-T1 and T1-T2 discs. Spinal Cord: Visualized spinal cord has normal size and signal. No cerebellar tonsillar herniation. Paraspinous Soft Tissues: No paravertebral masses. Prevertebral soft tissues are normal in thickness. C2-C3: Loss of disc signal. No central stenosis. Mild right and moderate left facet hypertrophy. Severe bilateral neural foraminal narrowing with slight compression of the exiting C3 nerve roots. C3-C4: Loss of disc signal and height. No central stenosis. No neural foraminal narrowing. No neural compression. C4-C5: Loss of disc signal and height. No central stenosis. Mild bilateral neural foraminal narrowing. No neural compression. C5-C6: Loss of disc signal and height. No central stenosis. Moderate bilateral neural foraminal narrowing. No neural compression. C6-C7: Loss of disc signal and height. No central stenosis. Mild bilateral neural foraminal narrowing. No neural compression. C7-T1: Loss of disc signal and height. Moderate, diffuse disc bulge. Mild ligamentum flavum hypertrophy. Mild narrowing of the central canal. Moderate bilateral neural foraminal narrowing. No neural compression. IMPRESSION: Postsurgical changes. Multilevel degenerative disc disease. No severe central canal stenosis. Severe bilateral C2-C3 neural foraminal stenosis with slight compression of the exiting C3 nerve roots. Dictated by: Jimena Cowan MD, PhD on 10/30/2024 at 16:09 Approved by: Jimena Cowan MD, PhD on 10/30/2024 at 16:18
== END ==
PROVIDERS: PCP Family Medicine; Referring Provider Orthopaedic Surgery Orthopaedic Surgery of the Spine; Visit Provider Orthopaedic Surgery Orthopaedic Surgery of the Spine
DX: M43.16 Spondylolisthesis, lumbar region (principal); M51.369 Other intervertebral disc degeneration, lumbar region without mention of lumbar back pain or lower extremity pain; M47.816 Spondylosis without myelopathy or radiculopathy, lumbar region; M47.817 Spondylosis without myelopathy or radiculopathy, lumbosacral region; M48.061 Spinal stenosis, lumbar region without neurogenic claudication; M48.07 Spinal stenosis, lumbosacral region; M50.01 Cervical disc disorder with myelopathy, high cervical region; M48.02 Spinal stenosis, cervical region
CPT/HCPCS: 72141; 72148

== ENCOUNTER → 2024-11-04 10:21 | Outpatient (CLI) | payer MEDICARE, OTHER, SELFPAY ==
--- NOTE | 2024-11-04 10:23 | DI.MRI.S_ITS ---
PROCEDURE: MR HEAD/BRAIN WO/W CON INDICATIONS: worsening headaches, s/p removal of meningioma TECHNIQUE: Noncontrast axial T1 spin echo, axial T2 fast spin echo, sagittal and axial FLAIR, coronal T2 fast spin echo, axial gradient echo, axial diffusion and ADC through the brain. After the administration of contrast, axial and coronal and sagittal T1 spin echo with fat saturation through the brain. COMPARISON: [facility], MR, MR HEAD/BRAIN WO/W CON, 01/18/2022, 11:53. [facility], MR, MR HEAD/BRAIN WO/W CON, 10/04/2021, 15:13. [facility], MR, MR LUMBAR SPINE WO CON, 10/30/2024, 14:09. [facility], MR, MR CERVICAL SPINE WO CON, 10/30/2024, 14:09. [facility], MR, MR HEAD/BRAIN WO/W CON, 02/22/2023, 13:28. FINDINGS: Image quality: Excellent. CSF spaces: Basal cisterns are patent. No extra-axial fluid collections. Ventricles are normal in size and shape. Brain: Mild edema and encephalomalacia can be seen involving the left posterior occipital lobe, which is similar to the prior examination. No abnormal enhancement can be seen at this site. No midline shift. No intracranial bleeds or masses. No abnormal intracranial enhancement. There is cerebral volume loss for age. There is periventricular white matter chronic small vessel ischemic change. The brainstem appears normal. Diffusion-weighted images demonstrate no acute infarct. Normal intravascular flow voids are present. Skull and face: Left posterior craniotomy change can be seen. Calvarial marrow is normal in signal. Orbits appear normal. Note is made of bilateral lens replacements. Sinuses: Sinuses and mastoids appear clear. IMPRESSION: Stable postoperative findings can be seen, with left posterior craniotomy change. Mild edema and encephalomalacia can be seen involving the left occipital lobe, yet without enhancement or other findings of recurrent masses. Dictated by: Pablito Burrows M.D. on 11/04/2024 at 11:01 Approved by: Pablito Burrows M.D. on 11/04/2024 at 11:04
== END ==
PROVIDERS: PCP Family Medicine; Referring Provider Family Medicine; Visit Provider Family Medicine
DX: D32.0 Benign neoplasm of cerebral meninges (principal); G93.89 Other specified disorders of brain; R51.9 Headache, unspecified
CPT/HCPCS: 70553; A9579

== ENCOUNTER → 2024-12-09 09:17 | Outpatient (CLI) | payer MEDICARE, OTHER, SELFPAY ==
[2024-12-09 20:15] LABS: Add Manual Diff / Slide Review NO; Basophils Absolute Auto 0 /uL (0-100); Basophils Percent Auto 0.6 % (0-2); Eosinophils Absolute Auto 200 /uL (0-450); Hematocrit 43.1 % (36-46); Hemoglobin 14.4 g/dL (12.0-16.0); Lymphocytes Absolute Auto 1200 /uL (1100-4500); Mean Corpuscular HGB Conc 33.5 % (30-36); Mean Corpuscular Hemoglobin 32.9 PG (26-34); Mean Corpuscular Volume 98.2 fL (80-100); Monocytes Absolute Auto 500 /uL (0-900); Monocytes Percent Auto 9.4 % (3-14); Neutrophils Absolute Auto 3400 /uL (1500-7000); Platelet Count 145 X10^3/uL (150-400); Red Blood Cell Count 4.39 X10^6/uL (4.0-5.2); Red Cell Distribution Width 12.6 % (11.6-14.8); White Blood Cell Count 5.4 X10^3/uL (4.5-11.0)
[2024-12-09 20:17] LABS: Hemoglobin A1C% w Est Avg Glu 5.1 % (4.0-6.0)
[2024-12-09 20:20] LABS: Alanine Aminotransferase 50 IU/L (<35); Albumin 4.1 g/dL (3.5-5.0); Albumin Globulin Ratio 1.5 (1.0-2.8); Alkaline Phosphatase 92 U/L (38-126); Aspartate Aminotransferase 36 IU/L (14-36); BUN Creatinine Ratio 28.6 (6-22); Bilirubin Total 0.6 mg/dL (0.2-1.3); Blood Urea Nitrogen 24 mg/dL (7-17); Calcium 9.9 mg/dL (8.4-10.2); Carbon Dioxide 25 mmol/L (22-32); Chloride 107 mmol/L (98-107); Cholesterol 177 mg/dL (140-199); Estimated Glomerular Filt Rate > 60 mL/min (>60); Globulin 2.7 g/dL (1.7-4.1); Glucose 98 mg/dL (80-110); HDL Cholesterol 70 mg/dL (40-60); HEMOLYSIS < 15 (0-50); LDL Cholesterol Calculated 92 mg/dL (<100); Potassium 4.5 mmol/L (3.4-5.1); Sodium 141 mmol/L (137-145); Total Protein 6.8 g/dL (6.3-8.2); Triglycerides 73 mg/dL (35-150)
== END ==
PROVIDERS: PCP Family Medicine; Visit Provider Family Medicine
DX: I11.9 Hypertensive heart disease without heart failure (principal); R73.09 Other abnormal glucose; E88.810 Metabolic syndrome; E78.2 Mixed hyperlipidemia; E66.01 Morbid (severe) obesity due to excess calories
CPT/HCPCS: 80053; 80061; 83036; 84443; 85025

== ENCOUNTER 2024-12-14 08:59 | Emergency (ER) | payer MEDICARE, OTHER, SELFPAY ==
[2024-12-14 09:06] VITALS: BP 157/78; PULSE 86; RESP 18; TEMP 36.4; O2SAT 96; BMI 38.0
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
[2024-12-14 10:59] VITALS: BP 150/70; PULSE 78; RESP 16; O2SAT 97
== END 2024-12-14 11:00 | disposition home or self-care (01) ==
PROVIDERS: Emergency Provider Emergency Medicine; PCP Family Medicine
DX: M25.552 Pain in left hip (principal)
CPT/HCPCS: 99281

== ENCOUNTER → 2025-01-14 10:38 | Outpatient (CLI) | payer MEDICARE, OTHER, SELFPAY ==
--- NOTE | 2025-01-14 10:39 | DI.US.S_ITS ---
PROCEDURE: US ABDOMEN LIMITED INDICATIONS: liver cyst seen on imaging TECHNIQUE: Real-time scanning was performed of the abdominal and retroperitoneal organs, with image documentation. COMPARISON: [facility], MR, MR LUMBAR SPINE WO CON, 10/30/2024, 14:09. FINDINGS: Liver: Liver is normal in size and homogeneous in echotexture. Multiple simple cysts are noted in the liver. There are 2 in the left hepatic lobe and 1 in the right hepatic lobe. The 2 left hepatic lobe cysts measure 6.1 x 5.0 x 5.3 cm and 6.0 x 4.9 x 6.0 cm. The right hepatic lobe cyst measures 3.9 x 4.7 x 5.5 cm. Gallbladder: Gallbladder is normal in sonographic appearance without gallstones, gallbladder wall thickening, pericholecystic fluid, or abnormal sonographic Sheikh's. Biliary ducts: Intrahepatic bile ducts are non-dilated. Extrahepatic bile duct caliber measures 8 mm. Normal is 6-7 mm or less in diameter, or 10 mm or less post-cholecystectomy. Pancreas: Visualized portions of the pancreas are sonographically normal. Miscellaneous: No free abdominal fluid. Mild cortical thinning of the right kidney measuring approximately 0.7 cm in thickness. IMPRESSION: Multiple simple appearing hepatic cysts noted in both lobes of the liver. No acute sonographic abnormalities. Thinning of the right renal cortex likely related to sequela of chronic medical renal disease. Dictated by: Сергей Estrada M.D. on 01/14/2025 at 16:36 Approved by: Сергей Estrada M.D. on 01/14/2025 at 16:39
== END ==
PROVIDERS: PCP Family Medicine; Referring Provider Family Medicine; Visit Provider Family Medicine
DX: K76.89 Other specified diseases of liver (principal)
CPT/HCPCS: 76705

== ENCOUNTER → 2025-02-06 08:22 | Outpatient (CLI) | payer MEDICARE, OTHER, SELFPAY | PROVIDERS: PCP Family Medicine; Visit Provider Family Medicine | DX: M54.9 Dorsalgia, unspecified (principal); G89.29 Other chronic pain; R39.9 Unspecified symptoms and signs involving the genitourinary system | CPT/HCPCS: 87086 ==

== ENCOUNTER → 2025-04-28 11:15 | Outpatient (CLI) | payer MEDICARE, OTHER, SELFPAY ==
[2025-04-28 19:34] LABS: HEMOLYSIS < 15 (0-50); Iron 108 ug/dL (37-170)
[2025-04-28 19:36] LABS: Alanine Aminotransferase 44 IU/L (<35); Albumin 4.1 g/dL (3.5-5.0); Albumin Globulin Ratio 1.5 (1.0-2.8); Alkaline Phosphatase 87 U/L (38-126); Globulin 2.7 g/dL (1.7-4.1); HEMOLYSIS < 15 (0-50); Total Protein 6.8 g/dL (6.3-8.2)
[2025-04-28 19:49] LABS: Percent Iron Saturation 34 % (15-50); Total Iron Binding Capacity 318 ug/dL (265-497)
[2025-04-28 19:57] LABS: Transferrin 278 mg/dL (206-381)
[2025-04-28 20:09] LABS: TSH w/ Reflex to FT4 0.38 uIU/mL (0.47-4.68)
[2025-04-28 20:12] LABS: Ferritin 107 ng/mL (11-264)
[2025-04-28 20:51] LABS: Free T4, Direct Thyroxine 1.16 ng/dL (0.78-2.19)
[2025-04-29 22:37] LABS: Hepatitis A Antibody IgM Negative (Negative); Hepatitis B Core Antibody IgM Negative (Negative); Hepatitis C Antibody Non Reactive (Non Reactive)
[2025-05-01 21:07] LABS: ANA Screen, IFA Negative (.)
== END ==
PROVIDERS: PCP Family Medicine; Visit Provider Family Medicine
DX: J45.909 Unspecified asthma, uncomplicated (principal); R74.8 Abnormal levels of other serum enzymes; E88.810 Metabolic syndrome; E78.2 Mixed hyperlipidemia; K75.9 Inflammatory liver disease, unspecified; I10 Essential (primary) hypertension; K76.89 Other specified diseases of liver
CPT/HCPCS: 80074; 80076; 82728; 83540; 83550; 84439; 84443; 84480; 86038

== ENCOUNTER → 2025-07-29 10:31 | Outpatient (CLI) | payer MEDICARE, OTHER, SELFPAY ==
--- NOTE | 2025-07-29 10:34 | DI.RAD.S_ITS ---
PROCEDURE: XR HUMERUS LT 2V INDICATIONS: fall 5 day ago, pain mid lateral arm TECHNIQUE: 2 views of the humerus were acquired. COMPARISON: None. FINDINGS: Bones: No fractures or dislocations. No suspicious bony lesions. Degenerative changes are seen, particular involving the acromioclavicular joint. Soft tissues: No suspicious soft tissue calcifications. IMPRESSION: No acute plain film abnormality is seen. Dictated by: Pablito Burrows M.D. on 07/29/2025 at 10:29 Approved by: Pablito Burrows M.D. on 07/29/2025 at 10:29
== END ==
PROVIDERS: PCP Family Medicine; Referring Provider Physician Assistant; Visit Provider Physician Assistant
DX: M79.603 Pain in arm, unspecified (principal)
CPT/HCPCS: 73060

== ENCOUNTER → 2025-08-18 09:56 | Outpatient (CLI) | payer MEDICARE, OTHER, SELFPAY ==
[2025-08-18 10:54] LABS: Hematocrit 40.4 % (36-46); Hemoglobin 13.8 g/dL (12.0-16.0); Mean Corpuscular HGB Conc 34.2 % (30-36); Mean Corpuscular Hemoglobin 32.6 PG (26-34); Mean Corpuscular Volume 95.5 fL (80-100); Platelet Count 175 X10^3/uL (150-400)
[2025-08-18 11:31] LABS: Alanine Aminotransferase 25 IU/L (<35); Albumin 4.1 g/dL (3.5-5.0); Albumin Globulin Ratio 1.5 (1.0-2.8); Alkaline Phosphatase 73 U/L (38-126); Blood Urea Nitrogen 28 mg/dL (7-17); Calcium 9.6 mg/dL (8.4-10.2); Carbon Dioxide 22 mmol/L (22-32); Chloride 107 mmol/L (98-107); Estimated Glomerular Filt Rate > 60 mL/min (>60); Globulin 2.7 g/dL (1.7-4.1); Glucose 112 mg/dL (70-99); HEMOLYSIS < 15 (0-50); Potassium 4.6 mmol/L (3.4-5.1); Sodium 138 mmol/L (137-145); Total Protein 6.8 g/dL (6.3-8.2)
[2025-08-18 12:00] LABS: TSH w/ Reflex to FT4 0.28 uIU/mL (0.47-4.68)
[2025-08-18 12:32] LABS: Free T4, Direct Thyroxine 1.18 ng/dL (0.78-2.19)
== END ==
PROVIDERS: PCP Family Medicine; Referring Provider Family Medicine; Visit Provider Family Medicine
DX: I10 Essential (primary) hypertension (principal); R79.89 Other specified abnormal findings of blood chemistry; R74.8 Abnormal levels of other serum enzymes
CPT/HCPCS: 36415; 80053; 84439; 84443; 85027